=== PATIENT | female | born 1960 | race Caucasian/White ===

== ENCOUNTER 2020-02-26 09:18 | Outpatient (CLI) | payer OTHER, SELFPAY ==
[2020-02-26 10:08] LABS: Anion Gap 10.3 mmol/L (7-16); Blood Urea Nitrogen 15 mg/dL (7-17); Calcium 8.8 mg/dL (8.4-10.2); Carbon Dioxide 31 mmol/L (22-30); Chloride 99 mmol/L (98-107); Cholesterol 236 mg/dL (0-200); Estimated Glomerular Filt Rate > 60; Glucose 106 mg/dL (65-105); HDL Direct 49 mg/dL; Potassium 3.3 mmol/L (3.4-5.0); Sodium 137 mmol/L (137-145); Triglycerides 130 mg/dL (<150)
[2020-02-26 10:19] LABS: LDL Cholesterol Direct 145 mg/dL
[2020-02-26 11:17] LABS: Free T4 Free Thyroxine 0.58 ng/mL (0.78-2.19); Vitamin D 25 Hydroxy 46.2 ng/mL
== END 2020-02-26 09:19 | disposition home or self-care (01) ==
PROVIDERS: PCP Internal Medicine; Visit Provider Internal Medicine
DX: E55.9 Vitamin D deficiency, unspecified (principal); I10 Essential (primary) hypertension; E78.5 Hyperlipidemia, unspecified; E05.90 Thyrotoxicosis, unspecified without thyrotoxic crisis or storm
CPT/HCPCS: 36415; 80048; 80061; 82306; 84439; 84443

== ENCOUNTER 2020-05-14 11:43 | Outpatient (CLI) | payer OTHER, SELFPAY ==
[2020-05-14 14:05] LABS: Thyroid Stimulating Hormone 0.756 uIU/mL (0.465-4.680)
[2020-05-14 14:08] LABS: Free T4 Free Thyroxine 1.27 ng/mL (0.78-2.19)
== END 2020-05-14 11:44 | disposition home or self-care (01) ==
PROVIDERS: PCP Internal Medicine; Visit Provider Internal Medicine Endocrinology, Diabetes & Metabolism
DX: E03.9 Hypothyroidism, unspecified (principal)
CPT/HCPCS: 36415; 84439; 84443

== ENCOUNTER 2020-07-02 08:27 | Outpatient (CLI) | payer OTHER, SELFPAY ==
--- NOTE | ~2020-07-02 | DEXA_ITS ---
Bone Density Report Name: Wilma Scott Age: 60 Sex: Female Ethnicity: White Date of : 1960 Indication: postmenopausal; prior fracture; Referring Provider: KINGS, TED Study: Bone densitometry was performed. Exam Date: July 02, 2020 Accession number: [id number] Bone Density: Region BMD T-score Z-score Classification AP Spine (L1-L4) 0.923 -1.1 0.3 Osteopenia Femoral Neck (Left) 0.578 -2.4 -1.2 Osteopenia Total Hip (Left) 0.779 -1.3 -0.4 Osteopenia Total Hip Bilateral Avg 0.809 -1.1 -0.2 Osteopenia Femoral Neck (Right) 0.653 -1.8 -0.5 Osteopenia Total Hip (Right) 0.838 -0.9 0.1 Normal World Health Organization criteria for BMD impression classify patients as: Normal (T-score at or above -1.0), Osteopenia (T-score between -1.0 and -2.5), or Osteoporosis (T-score at or below -2.5). 10-year Fracture Risk: FRAX not reported because: Treated for osteoporosis Clinical Information Provided by Patient: Has had a low trauma fracture Is being treated for osteoporosis Has used the following medications: Reclast (i.e. zoledronate), Vitamin D Patient maximum height was 62.5 Menopause Age: 53 No regular weight bearing exercise Drinks caffeinated beverages Onset of menses at age 15 Number of children 3 Impression: The patient has low bone mass, based on the Left Femoral Neck T-score. The patient has risk factors, including: previous fracture. Discussion: It is important to ask patients whether they are taking their medications and to encourage continued and appropriate compliance with their osteoporosis therapies to reduce fracture risk. It is also important to review their risk factors and encourage appropriate calcium and vitamin D intakes, exercise, fall prevention and other lifestyle measures. Follow-Up: Consider a repeat BMD and Vertebral Fracture Assessment (VFA) exam in 2 years or sooner if medically necessary, to reassess this patient's status. Reported by: DO on 07/02/2020 9:18:00 AM. Reviewed, dictated and finalized at location AAdan MENDOSA
--- NOTE | ~2020-07-02 | MM_ITS ---
EXAMINATION: MM screening [facility] HISTORY: Screening mammogram TECHNIQUE: Craniocaudal and mediolateral oblique 3-D tomosynthesis images were obtained and synthetic 2-D images were generated. CAD analysis was submitted and interpreted. COMPARISON: 05/08/2019, 03/25/2018, 03/15/2017 BREAST PARENCHYMAL COMPOSITION: There are scattered areas of fibroglandular density. FINDINGS: There is no evidence of suspicious mass, calcification, or architectural distortion to sugg est malignancy in either breast. There has been no suspicious interval change. IMPRESSION: 1. No mammographic evidence of malignancy. 2. Recommend routine screening mammography in one year. BI-RADS Category 1: Negative Reviewed, dictated and finalized at location A. 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
== END 2020-07-02 08:28 | disposition home or self-care (01) ==
LOC: ANHIMG 08:30
PROVIDERS: PCP Internal Medicine; Visit Provider Nurse Practitioner
DX: Z12.31 Encounter for screening mammogram for malignant neoplasm of breast (principal); Z78.0 Asymptomatic menopausal state; M85.89 Other specified disorders of bone density and structure, multiple sites
CPT/HCPCS: 77063; 77067; 77080

== ENCOUNTER 2020-12-09 17:38 | Emergency (ER) | payer OTHER, SELFPAY ==
[2020-12-09 17:48] VITALS: BP 145/81; PULSE 84; RESP 16; TEMP 36.7; O2SAT 99
--- NOTE | 2020-12-09 18:20 | ED.SKABFB ---
HPI - Skin/Abscess/Foreign Bdy General Chief complaint: Skin/Abscess/Foreign Body Stated complaint: Swollen arm around tattoo Time Seen by Provider: 12/09/20 18:20 Source: patient Mode of arrival: ambulatory Limitations: no limitations History of Present Illness HPI narrative: Wilma Scott is a 60 yo female with a PMH of HTN who comes with redness and swelling around a brand-new tattoo that was done last Saturday on her right forearm. The area around the tattoo is red and raised is mildly warm to touch but also is pruritic. She has tried variety of moisturizing lotions on the arm and some hydrocortisone around the tattoo. Has had multiple tattoos in the past without a reaction Related Data Home Medications Medication Instructions Recorded Confirmed bimatoprost [Lumigan] drp 12/09/20 ergocalciferol (vitamin D2) 12/09/20 levothyroxine [Synthroid] 12/09/20 timolol maleate drp 12/09/20 Allergies Allergy/AdvReac Type Severity Reaction Status Date / Time codeine Allergy Unknown Unknown Verified 10/24/20 14:15 Penicillins Allergy Unknown Unknown Verified 10/24/20 14:15 Review of Systems Review of Systems: Narrative: CONSTITUTIONAL: Denies fever, chills, sweats. EYES: Denies visual changes, redness, discharge. ENT: Denies rhinorrhea, congestion, sore throat, otalgia. CARDIOVASCULAR: Denies chest pain, palpitations, edema. RESPIRATORY: Denies dyspnea, wheezing, cough GASTROINTESTINAL: Denies abdominal pain, nausea, vomiting, diarrhea. GENITOURINARY: Denies dysuria, hematuria, abnormal discharge SKIN: Denies rash or itching. Redness and induration around the new tattoo with itching NEUROLOGIC: Denies numbness, or focal weakness. PSYCHIATRIC: Denies anxiety or depression. [facility] Past Medical History Medical History HTN (hypertension) Family History Family History (Updated 12/09/20 @ 18:36 by Rosanna Smith CNP) Mother Family history of congestive heart failure Father Family history of cystic fibrosis Pulmonary fibrosis Other Pulmonary fibrosis Other Diabetes mellitus Family history of arthritis Family history of cardiovascular disease Family history of lung disease Family history of malignant neoplasm Family history of osteoporosis Hypertension Social History Social History Smoking packs per day: 0.5 Smoking cigarettes per day: 10.0 Years smoked: 14 Smoking pack-years: 7.00 Smoking status: Former smoker Tobacco type: cigarettes Smoking end date: 10/24/92 Alcohol intake: current Spiritual care concerns: No Comments At time of signature, I agree with nursing past medical, surgical, social and family history. There is no relevant family history pertinent to the presenting complaint. Exam Narrative: Exam Narrative: My GENERAL: This is a well-nourished, well-developed patient, in mild distress. HEAD: normocephalic, atraumatic. EYESSclera clear/white. Vision is grossly intact. EARS: External ears normal, Hearing grossly intact. NOSE: External nose normal without nasal discharge, nares without redness, no rhinorrhea. THROAT: Mucous membranes moist, NECK: Neck supple, CARDIOVASCULAR: Regular rate and rhythm without murmurs, gallops, or rubs. RESPIRATORY: Clear to auscultation. Breath sounds equal bilaterally. No wheezes, rales, or rhonchi. GASTROINTESTINAL: Abdomen soft, non-tender, SKIN: warm, intact with redness and induration around tattoo with some itching the tattoo itself is not edemic; reddened area is pruritic NEURO: awake, alert, and oriented to person, place and time. There were no obvious focal neurologic abnormalities. Steady gait EXTREMITIES: Normal range of motion. BACK: Nontender without deformity Course Course Emergency Course: Patient here because of reaction around tattoo that was placed last Saturday Started on hydrocortisone 1% cream around tattoo and Keflex 500 mg 3 times daily x1
--- NOTE | 2020-12-09 19:34 | PC.NURSE ---
called and requested rx to go to [facility] on [address]. [employer] in process of re escribing.
== END 2020-12-09 18:52 | disposition home or self-care (01) ==
PROVIDERS: Emergency Provider Nurse Practitioner; PCP Internal Medicine
DX: L50.9 Urticaria, unspecified (principal); L03.113 Cellulitis of right upper limb; Z87.891 Personal history of nicotine dependence; I10 Essential (primary) hypertension
CPT/HCPCS: 99213; G0463

== ENCOUNTER → 2021-08-08 06:59 | Outpatient (CLI) | payer OTHER, SELFPAY ==
--- NOTE | ~2021-08-08 | MM_ITS ---
EXAMINATION: MM screening [facility] HISTORY: Screening TECHNIQUE: Craniocaudal and mediolateral oblique 3-D tomosynthesis images were obtained and synthetic 2-D images were generated. CAD analysis was submitted and interpreted. COMPARISON: Comparison to multiple prior studies sequentially, with oldest reviewed study dated 03/05. BREAST PARENCHYMAL COMPOSITION: There are scattered areas of fibroglandular density. FINDINGS: There is no evidence of suspicious mass, calcification, or architectural distortion to sugg est malignancy in either breast. There has been no suspicious interval change. IMPRESSION: 1. No mammographic evidence of malignancy. 2. Recommend routine screening mammography in one year. BI-RADS Category 1: Negative Reviewed, dictated and finalized at location A. NCIAL OPERATIONS CONSULTANT
== END ==
PROVIDERS: Visit Provider Nurse Practitioner
DX: Z12.31 Encounter for screening mammogram for malignant neoplasm of breast (principal)
CPT/HCPCS: 77063; 77067

== ENCOUNTER → 2021-08-17 09:54 | Outpatient (CLI) | payer OTHER, SELFPAY ==
[2021-08-17 14:28] LABS: Influenza A QL RT-PCR Negative (Negative); Influenza B QL RT-PCR Negative (Negative); SARS-CoV-2 RNA PCR Positive
== END ==
PROVIDERS: PCP Internal Medicine; Visit Provider Nurse Practitioner
DX: U07.1 COVID-19 (principal); R68.89 Other general symptoms and signs
CPT/HCPCS: 87502; C9803; U0003; U0005

== ENCOUNTER 2021-11-14 09:43 | Outpatient (CLI) | payer OTHER, SELFPAY ==
--- NOTE | ~2021-11-14 | US_ITS ---
EXAMINATION: US soft tissue head and neck DATE: 11/14/2021 10:31 INDICATION: Posterior neck lump. TECHNIQUE: Multiple grayscale and Doppler ultrasound images of the neck were obtained. COMPARISON: None FINDINGS: There is a 1.4 cm mass in the posterior neck at the base of the skull. IMPRESSION: 1. 1.4 cm mass in the posterior neck in the base of the skull. This finding may be the nuchal ligamen t with enthesopathy. Neck CT with contrast is recommended to exclude malignancy. Reviewed, dictated and finalized at location A. IMPRESSION: 1. 1.4 cm mass in the posterior neck in the base of the skull. This finding may be the nuchal ligament with enthesopathy. Neck CT with contrast is recommended to exclude malignancy.
== END 2021-11-14 09:44 | disposition home or self-care (01) ==
PROVIDERS: PCP Internal Medicine; Visit Provider Internal Medicine
DX: R22.1 Localized swelling, mass and lump, neck (principal)
CPT/HCPCS: 76536

== ENCOUNTER → 2021-11-17 01:35 | Outpatient (CLI) | payer OTHER, SELFPAY ==
[2021-11-17 12:40] LABS: SARS-CoV-2 RNA PCR Negative
== END ==
PROVIDERS: PCP Internal Medicine; Visit Provider Internal Medicine Gastroenterology
DX: Z01.812 Encounter for preprocedural laboratory examination (principal); Z20.822 Contact with and (suspected) exposure to COVID-19
CPT/HCPCS: C9803; U0003; U0005

== ENCOUNTER 2021-11-20 02:15 | Day surgery (SDC) | payer OTHER, SELFPAY ==
[2021-11-13 14:25] VITALS: BMI 23.6
[2021-11-20 09:30] VITALS: BP 123/87; PULSE 81; RESP 16; TEMP 36.2; O2SAT 100
[2021-11-20] MEDS: LACTATED RINGERS 1,000 ML 150 ML IV CONT (09:34)
--- NOTE | 2021-11-20 09:49 | PM.HPGS ---
History of Present Illness History of Present Illness Consent: Risks, benefits, and alternatives have been discussed and questions answered. Patient agrees to proceed with procedure. Chief complaint: neoplasm screening Narrative: Wilma Scott is a 61 year old female referred for colon cancer screening. It has been 10 years since her last colonoscopy. Review of Systems Review of Systems: All systems reviewed & are unremarkable except as noted in HPI and below PMFSH Past Medical History Medical History Gastro-esophageal reflux disease without esophagitis (04/21/19) Generalized anxiety disorder History of [place] (myocardial infarction) 1992 HTN (hypertension) Hyperlipidemia Hypothyroidism Surgical History Surgical History History of cholecystectomy History of rotator cuff surgery Family History Family History Mother Family history of congestive heart failure Father Family history of cystic fibrosis Pulmonary fibrosis Other Pulmonary fibrosis Other Diabetes mellitus Family history of arthritis Family history of cardiovascular disease Family history of lung disease Family history of malignant neoplasm Family history of osteoporosis Hypertension Social History Social History Smoking packs per day: 0.25 Smoking cigarettes per day: 5.0 Years smoked: 19 Smoking pack-years: 4.75 Smoking status: Former smoker Tobacco type: cigarettes Second hand tobacco smoke exposure: Yes Smoking end date: 10/24/92 Alcohol intake: never Alcohol use details: Social Substance use: never Substance use type: does not use Living arrangements: with family Spiritual care concerns: No Meds Home Medications and Allergies Home Medications Medication Instructions Recorded Confirmed Type bimatoprost [Lumigan] 1 drp EACH EYE DAILY 12/09/20 11/20/21 History timolol maleate 1 drp EACH EYE DAILY 12/09/20 11/20/21 History ergocalciferol (vitamin D2) 1,250 1 mcg PO WEEKLY 02/28/21 11/20/21 History mcg (50,000 unit) capsule spironolactone 25 1 tablet PO DAILY #90 tablet 06/21/21 11/20/21 Rx mg-hydrochlorothiazide 25 mg tablet pravastatin 40 mg tablet 40 mg PO DAILY #90 tablet 07/03/21 11/20/21 Rx levothyroxine 75 mcg capsule 75 mcg PO DAILY 11/03/21 11/20/21 History lorazepam 0.5 mg tablet 0.5 mg PO DAILY PRN #30 tablet 11/03/21 11/20/21 Rx cetirizine [Zyrtec] 10 mg PO DAILY 11/13/21 11/20/21 History Allergies Allergy/AdvReac Type Severity Reaction Status Date / Time codeine Allergy Unknown Unknown Verified 11/20/21 09:29 Penicillins Allergy Unknown Unknown Verified 11/20/21 09:29 Vital Signs Vital Signs - 24 hr 11/20/21 09:30 Temperature 36.2 C L Pulse Rate 81 Respiratory Rate 16 Blood Pressure 123/87 Pulse Oximetry 100 Exam Resp: Auscultation: clear to auscultation bilaterally Cardio: Rate: regular rate Rhythm: regular rhythm GI: GI Palp: Yes Soft to palpation and No Tenderness to palpation present (GI) Assessment and Plan Assessment and plan (1) Colon cancer screening: Code(s): Z12.11 - Encounter for screening for malignant neoplasm of colon Status: Acute Assessment and Plan: Colonoscopy with possible biopsy or polypectomy or cautery or injection of substances.
--- NOTE | 2021-11-20 10:15 | WPDANESEPPF ---
Anes - Initial Pre Proc Eval Procedure: Operation Date: 11/20/21 10:30 Proposed Procedures p Screening Colonoscopy - Yuan Morgan MD Date/Time: 11/20/21 10:15 Surgeon: Yuan Morgan MD Pre Op Diagnosis: neoplasm screening Patient Data Age: 61 Gender: F Height: 1.59 m Weight: 59.3 kg Last Vital Signs Temp 97.1 F L 11/20/21 09:30 Pulse 81 11/20/21 09:30 Resp 16 11/20/21 09:30 BP 123/87 11/20/21 09:30 Pulse Ox 100 11/20/21 09:30 Allergies Allergy/AdvReac Type Severity Reaction Status Date / Time codeine Allergy Unknown Unknown Verified 11/20/21 09:29 Penicillins Allergy Unknown Unknown Verified 11/20/21 09:29 Home Medications Medication Instructions Recorded Confirmed Type bimatoprost [Lumigan] 1 drp EACH EYE DAILY 12/09/20 11/20/21 History timolol maleate 1 drp EACH EYE DAILY 12/09/20 11/20/21 History ergocalciferol (vitamin D2) 1,250 1 mcg PO WEEKLY 02/28/21 11/20/21 History mcg (50,000 unit) capsule spironolactone 25 1 tablet PO DAILY #90 tablet 06/21/21 11/20/21 Rx mg-hydrochlorothiazide 25 mg tablet pravastatin 40 mg tablet 40 mg PO DAILY #90 tablet 07/03/21 11/20/21 Rx levothyroxine 75 mcg capsule 75 mcg PO DAILY 11/03/21 11/20/21 History lorazepam 0.5 mg tablet 0.5 mg PO DAILY PRN #30 tablet 11/03/21 11/20/21 Rx cetirizine [Zyrtec] 10 mg PO DAILY 11/13/21 11/20/21 History Patient hx anesthesia problems: none Family hx anesthesia problems: none Results Review: All pre-operative results and documents have been reviewed as part of the pre-operative evaluation. [facility] Past Medical History Medical History (Updated 11/20/21 @ 09:49 by Yuan Morgan MD) Gastro-esophageal reflux disease without esophagitis (04/21/19) Generalized anxiety disorder History of [place] (myocardial infarction) 1993 HTN (hypertension) Hyperlipidemia Hypothyroidism Surgical History Surgical History History of cholecystectomy History of rotator cuff surgery Family History Family History Mother Family history of congestive heart failure Father Family history of cystic fibrosis Pulmonary fibrosis Other Pulmonary fibrosis Other Diabetes mellitus Family history of arthritis Family history of cardiovascular disease Family history of lung disease Family history of malignant neoplasm Family history of osteoporosis Hypertension Social History Social History Smoking packs per day: 0.25 Smoking cigarettes per day: 5.0 Years smoked: 19 Smoking pack-years: 4.75 Smoking status: Former smoker Tobacco type: cigarettes Second hand tobacco smoke exposure: Yes Smoking end date: 10/24/92 Alcohol intake: never Alcohol use details: Social Substance use: never Substance use type: does not use Living arrangements: with family Spiritual care concerns: No Anes - Eval Final PreProcedure Day of Procedure 11/20/21 10:15 Patient weight: normal Heart: regular rate and rhythm Lungs: clear to auscultation Airway: Mallampati scale class II Neurological: alert and oriented Last oral intake: >/= 8 hours ASA classification: III Emergent: no Anesthetic plan: proceed Anesthesia type and monitoring: general GIVS and standard monitoring Results Review: All pre-operative results and documents have been reviewed as part of the pre-operative evaluation. Informed Consent: The patient's anesthetic plan and its attendant risks and benefits were discussed with the patient/family/POA. Questions were solicited and answers provided to the satisfaction of the patient/family/POA.
[2021-11-20 10:44] VITALS: BP 104/70; PULSE 84; RESP 18; O2SAT 99
[2021-11-20 10:54] VITALS: BP 109/71; PULSE 80; RESP 20; O2SAT 99
[2021-11-20 11:04] VITALS: BP 130/88; PULSE 84; RESP 18; O2SAT 99
== END 2021-11-20 11:11 | disposition home or self-care (01) ==
PROVIDERS: PCP Internal Medicine; Visit Provider Internal Medicine Gastroenterology
PROC: 0DJD8ZZ Inspection of Lower Intestinal Tract, Via Natural or Artificial Opening Endoscopic (ICD-10-PCS; CPT 45378; principal; 2021-11-20 10:30)
DX: Z12.11 Encounter for screening for malignant neoplasm of colon (principal); D12.8 Benign neoplasm of rectum; K57.30 Diverticulosis of large intestine without perforation or abscess without bleeding; E03.9 Hypothyroidism, unspecified; I25.2 Old myocardial infarction; E78.5 Hyperlipidemia, unspecified; Z87.891 Personal history of nicotine dependence; K21.9 Gastro-esophageal reflux disease without esophagitis; F41.1 Generalized anxiety disorder
CPT/HCPCS: 45385; 88305; C9803; J2704; J7120; U0003; U0005

== ENCOUNTER 2021-11-30 06:59 | Outpatient (CLI) | payer OTHER, SELFPAY ==
--- NOTE | ~2021-11-30 | CT_ITS ---
EXAMINATION: CT soft tissue neck w con DATE: 11/30/2021 07:49 INDICATION: Posterior neck mass. TECHNIQUE: Computed tomography (CT) of the neck was performed with 75 mL Omnipaque 300 intravenous co ntrast. Automated exposure control and iterative reconstruction technique were employed. The dose-lula gth product was 396.04 mGy-cm. COMPARISON: Ultrasound 11/14/2021 FINDINGS: There are no pathologically enlarged lymph nodes. The cervical carotid arteries are normal. There is mild kyphosis of cervical spine. There is moderate degenerative disc disease at C5-C6 and m ild spondylosis at other levels. There is a skin marker at the posterior neck at the midline at C3. T here is thickening of the nuchal ligament with surrounding fat stranding in this area. IMPRESSION: 1. Thickening of the nuchal ligament at C3 with surrounding fat stranding, likely changes of old spra in. Reviewed, dictated and finalized at location A. IMPRESSION: 1. Thickening of the nuchal ligament at C3 with surrounding fat stranding, like ly changes of old sprain.
[2021-11-30 07:36] LABS: Estimated Glomerular Filt Rate > 60
== END 2021-11-30 07:00 | disposition home or self-care (01) ==
PROVIDERS: PCP Internal Medicine; Visit Provider Internal Medicine
DX: R22.1 Localized swelling, mass and lump, neck (principal)
CPT/HCPCS: 70491; Q9967

== ENCOUNTER 2022-08-13 15:09 | Outpatient (CLI) | payer OTHER, SELFPAY ==
--- NOTE | ~2022-08-13 | DEXA_ITS ---
Bone Density Report Name: KANDY RAO Age: 62 Sex: Female Ethnicity: White Date of : 1960 Indication: postmenopausal; screening for osteoporosis; Referring Provider: KINGS, TED Study: Bone densitometry was performed. Exam Date: August 13, 2022 Accession number: [id number] Bone Density: Region BMD T-score Z-score Classification AP Spine(L1-L4) 0.926 -1.1 0.5 Osteopenia Femoral Neck (Left) 0.620 -2.1 -0.7 Osteopenia Total Hip (Left) 0.799 -1.2 -0.1 Osteopenia Femoral Neck (Right) 0.698 -1.4 0.0 Osteopenia Total Hip (Right) 0.861 -0.7 0.4 Normal Total Hip Mean 0.830 -1.0 0.2 Normal World Health Organization criteria for BMD impression classify patients as: Normal (T-score at or above -1.0), Osteopenia (T-score between -1.0 and -2.5), or Osteoporosis (T-score at or below -2.5). 10-year Fracture Risk: FRAX not reported because: Treated for osteoporosis Clinical Information Provided by Patient: Is being treated for osteoporosis Has used the following medications: Reclast (i.e. zoledronate), Vitamin D Patient maximum height was 62.5 Menopause Age: 53 No regular weight bearing exercise Drinks caffeinated beverages Onset of menses at age 16 Number of children 3 Impression: The patient has low bone mass, based on the Left Femoral Neck T-score. Discussion: It is important to ask patients whether they are taking their medications and to encourage continued and appropriate compliance with their osteoporosis therapies to reduce fracture risk. It is also important to review their risk factors and encourage appropriate calcium and vitamin D intakes, exercise, fall prevention and other lifestyle measures. Follow-Up: Consider a repeat BMD and Vertebral Fracture Assessment (VFA) exam in 2 years or sooner if medically necessary, to reassess this patient's status. Reported by: KOBY on 08/13/2022 3:55:00 PM. Reviewed, dictated and finalized at location AAdan MENDOSA
--- NOTE | ~2022-08-13 | MM_ITS ---
EXAMINATION: MM screening [facility] HISTORY: Screening mammogram TECHNIQUE: Craniocaudal and mediolateral oblique 3-D tomosynthesis images were obtained and synthetic 2-D images were generated. CAD analysis was submitted and interpreted. COMPARISON: 08/08/2021, 07/02/2020, 05/08/2019 bilateral screening mammogram examinations BREAST PARENCHYMAL COMPOSITION: There are scattered areas of fibroglandular density. FINDINGS: There is no evidence of suspicious mass, calcification, or architectural distortion to sugg est malignancy in either breast. There has been no suspicious interval change. IMPRESSION: 1. No mammographic evidence of malignancy. 2. Recommend routine screening mammography in one year. BI-RADS Category 1: Negative Reviewed, dictated and finalized at location A. TRIMMER
== END 2022-08-13 15:10 | disposition home or self-care (01) ==
LOC: ANHIMG 15:16
PROVIDERS: PCP Internal Medicine; Visit Provider Nurse Practitioner
DX: Z12.31 Encounter for screening mammogram for malignant neoplasm of breast (principal); M85.88 Other specified disorders of bone density and structure, other site; M85.852 Other specified disorders of bone density and structure, left thigh; M85.851 Other specified disorders of bone density and structure, right thigh
CPT/HCPCS: 77063; 77067; 77080

== ENCOUNTER 2023-03-24 19:31 | Emergency (ER) | payer OTHER, SELFPAY ==
[2023-03-24 20:02] VITALS: BP 146/92; PULSE 74; RESP 20; TEMP 36.4; O2SAT 100
--- NOTE | 2023-03-24 23:05 | ED.GENADULT ---
HPI - General Adult General Chief complaint: Eye Problems Stated complaint: Floaters in L eye Time Seen by Provider: 03/24/23 22:34 History of Present Illness HPI narrative: This is a 62-year-old female presenting with floaters in her left eye. Last night the patient was at a barbecue when she notes she had some black specks in her vision. She then read on the Internet this could be retinal detachment on the internet and came to the hospital be evaluated. The patient does not have any visual field loss. No eye pain. No foreign bodies in the eye. No trauma She has glaucoma and has a hoop coiler. Related Data Home Medications Medication Instructions Recorded Confirmed bimatoprost 0.01 % eye drops 1 drp EACH EYE DAILY 12/09/20 03/21/23 (Lumigan) timolol maleate 0.5 % eye drops 1 drp EACH EYE DAILY 12/09/20 03/21/23 levothyroxine 75 mcg capsule 75 mcg PO DAILY 11/03/21 03/21/23 cetirizine 10 mg capsule (Zyrtec) 10 mg PO DAILY 11/13/21 03/21/23 ergocalciferol (vitamin D2) 1,250 1 mcg PO 2XW 09/06/22 03/21/23 mcg (50,000 unit) capsule Allergies Allergy/AdvReac Type Severity Reaction Status Date / Time codeine Allergy Unknown Unknown Verified 03/24/23 19:32 Penicillins Allergy Unknown Unknown Verified 03/24/23 19:32 [facility] Past Medical History Medical History Calculus of gallbladder without cholecystitis without obstruction Disorder of bone density and structure, unspecified Gastro-esophageal reflux disease without esophagitis (04/21/19) Generalized anxiety disorder History of [place] (myocardial infarction) 1992 HTN (hypertension) Hyperglycemia Hyperlipidemia Hyperthyroidism Hypothyroidism Impaired fasting glucose Osteopenia Vitamin D deficiency (04/21/19) Surgical History Surgical History History of cholecystectomy History of rotator cuff surgery Family History Family History Mother Family history of congestive heart failure Father Family history of cystic fibrosis Pulmonary fibrosis Other Pulmonary fibrosis Other Diabetes mellitus Family history of arthritis Family history of cardiovascular disease Family history of lung disease Family history of malignant neoplasm Family history of osteoporosis Hypertension Social History Social History Smoking packs per day: 0.25 Smoking cigarettes per day: 5.0 Years smoked: 19 Smoking pack-years: 4.75 Smoking status: Former smoker Tobacco type: cigarettes Second hand tobacco smoke exposure: Yes Smoking end date: 10/24/92 Alcohol intake: current Alcohol use details: Social Substance use: never Substance use type: does not use Lack of Transportation: No Lack of Food: Never True Current Housing: I Have Housing Concerned About Future Housing: No Difficulty Paying Gas/Electric Bills: No Difficulty Paying for Meds: No Currently Unemployed: No Education: Bachelor's Degree Difficulty w/ Childcare or Family Care: No Living arrangements: with family Spiritual care concerns: No Exam Narrative: APPEARANCE: No apparent distress. Head: atraumatic. EYES: EOMI, NOSE: Atraumatic NECK: Trachea midline RESPIRATORY: No increased rate of breathing CARDIOVASCULAR: RRR, ABDOMINAL: Non-distended MUSCULOSKELETAl: No obvious deformities NEURO: Alert. Moving 4/4 extremities SKIN:: Warm, dry. Normal color PSYCHIATRIC: Normal affect Eye exam: Fluorescein stain negative for abrasion or Tala sign. IOP is 16 bilaterally. 20/70 bilaterally. Visual felipe intact. Point of care ocular ultrasound revealed no evidence of retinal detachment or detritus in the posterior chamber. Course Vital Signs Vital signs: Vital Signs Temperature 97.6 F 03/24/23 20:02 Pulse Rate 74
[2023-03-24] MEDS: FLUORESCEIN SOD 1 MG/STRIP EACH EYE (23:10)
[2023-03-24] MEDS: TETRACAINE HCL 0.5% OPHTH SOLN 4 ML BTL 1 DROP EACH EYE (23:11)
[2023-03-24 23:23] VITALS: BP 142/86; PULSE 74; RESP 19; O2SAT 97
== END 2023-03-24 23:25 | disposition home or self-care (01) ==
PROVIDERS: Emergency Provider Emergency Medicine; PCP Nurse Practitioner Family
DX: H43.812 Vitreous degeneration, left eye (principal); I10 Essential (primary) hypertension; E78.5 Hyperlipidemia, unspecified; E55.9 Vitamin D deficiency, unspecified; K21.9 Gastro-esophageal reflux disease without esophagitis; M85.80 Other specified disorders of bone density and structure, unspecified site; Z90.49 Acquired absence of other specified parts of digestive tract; Z87.891 Personal history of nicotine dependence
CPT/HCPCS: 99283

== ENCOUNTER 2023-09-11 15:20 | Outpatient (CLI) | payer OTHER, SELFPAY ==
--- NOTE | ~2023-09-11 | MM_ITS ---
EXAMINATION: MM screening [facility] w li[facility] HISTORY: Screening TECHNIQUE: Craniocaudal and mediolateral oblique 3-D tomosynthesis images were obtained and synthetic 2-D images were generated. CAD analysis was submitted and interpreted. COMPARISON: Comparison to multiple prior studies sequentially, with oldest reviewed study dated 03/15. BREAST PARENCHYMAL COMPOSITION: Not dense: There are scattered areas of fibroglandular density. FINDINGS: There is no evidence of suspicious mass, calcification, or architectural distortion to sugg est malignancy in either breast. There has been no suspicious interval change. IMPRESSION: 1. No mammographic evidence of malignancy. 2. Recommend routine screening mammography in one year. BI-RADS Category 1: Negative Reviewed, dictated and finalized at location A. 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
[2023-09-11 18:21] LABS: Vitamin D 25 Hydroxy 61.6 ng/mL
== END 2023-09-11 15:21 | disposition home or self-care (01) ==
LOC: ANHIMG 15:26
PROVIDERS: PCP Nurse Practitioner Family; Visit Provider Nurse Practitioner
DX: Z12.31 Encounter for screening mammogram for malignant neoplasm of breast (principal); E55.9 Vitamin D deficiency, unspecified
CPT/HCPCS: 36415; 77063; 77067; 82306

== ENCOUNTER 2024-01-14 08:10 | Emergency (ER) | payer OTHER, SELFPAY ==
--- NOTE | 2024-01-14 08:12 | ED.SKABFB ---
HPI - Skin/Abscess/Foreign Bdy General Chief complaint: Skin/Abscess/Foreign Body Stated complaint: spider bite Time Seen by Provider: 01/14/24 08:11 Source: patient Mode of arrival: ambulatory Limitations: no limitations History of Present Illness HPI narrative: Wilma is a 63-year-old female patient presenting to the clinic today with complaints of a possible insect bite. She reports she believes she was bitten by a spider early this morning while she was sleeping. She reports she checked her bed for the spider and found a brown spider underneath her bed. She is concerned that it was a brown recluse. Did bring the spider with her-spider appears to be a brown house spider. No fever or chills. Related Data Home Medications Medication Instructions Recorded Confirmed bimatoprost 0.01 % eye drops 1 drp EACH EYE DAILY 12/09/20 01/14/24 (Lumigan) timolol maleate 0.5 % eye drops 1 drp EACH EYE DAILY 12/09/20 01/14/24 levothyroxine 75 mcg capsule 75 mcg PO DAILY 11/03/21 01/14/24 cetirizine 10 mg capsule (Zyrtec) 10 mg PO DAILY 11/13/21 01/14/24 ergocalciferol (vitamin D2) 1,250 1 mcg PO 2XW 09/06/22 01/14/24 mcg (50,000 unit) capsule Allergies Allergy/AdvReac Type Severity Reaction Status Date / Time codeine Allergy Intermediate Hives Verified 01/14/24 08:24 Penicillins Allergy Intermediate Rash Verified 01/14/24 08:24 Review of Systems Review of Systems: Pertinent positives per HPI. Patient denies any fever, chills, headache, visual changes, dizziness, cough, runny nose, sore throat, shortness of breath, chest pain, palpitations, nausea, vomiting, diarrhea, constipation, abdominal pain, or any urinary issues. [facility] Past Medical History Medical History Calculus of gallbladder without cholecystitis without obstruction Disorder of bone density and structure, unspecified Gastro-esophageal reflux disease without esophagitis (04/21/19) Generalized anxiety disorder History of [place] (myocardial infarction) 1992 HTN (hypertension) Hyperglycemia Hyperlipidemia Hyperthyroidism Hypothyroidism Impaired fasting glucose Osteopenia Vitamin D deficiency (04/21/19) Surgical History Surgical History History of cholecystectomy History of rotator cuff surgery Family History Family History Mother Family history of congestive heart failure Father Family history of cystic fibrosis Pulmonary fibrosis Other Pulmonary fibrosis Other Diabetes mellitus Family history of arthritis Family history of cardiovascular disease Family history of lung disease Family history of malignant neoplasm Family history of osteoporosis Hypertension Social History Social History Smoking packs per day: 0.25 Smoking cigarettes per day: 5.0 Years smoked: 19 Smoking pack-years: 4.75 Smoking status: Former smoker Tobacco type: cigarettes Second hand tobacco smoke exposure: Yes Smoking end date: 10/24/92 Alcohol intake: current Alcohol use details: Social Substance use: never Substance use type: does not use Lack of Transportation: No Lack of Food: Never True Current Housing: I Have Housing Concerned About Future Housing: No Difficulty Paying Gas/Electric Bills: No Difficulty Paying for Meds: No Currently Unemployed: No Education: Bachelor's Degree Difficulty w/ Childcare or Family Care: No Living arrangements: with family Spiritual care concerns: No Comments At the time of my signature, I reviewed and agree with the nursing past medical, surgical, social, and family history. There is no relevant family history pertinent to the patient complaint. Exam Narrative: General: Well-developed, well nourished, in no apparent distress Head: Normocephali
[2024-01-14 08:20] VITALS: BP 139/90; PULSE 73; RESP 16; TEMP 37.2; O2SAT 99
[2024-01-14 08:26] VITALS: BP 139/90; PULSE 73; RESP 16; TEMP 37.2; O2SAT 99
== END 2024-01-14 08:32 | disposition home or self-care (01) ==
PROVIDERS: Emergency Provider Nurse Practitioner Family; PCP Nurse Practitioner Family
DX: S00.86XA Insect bite (nonvenomous) of other part of head, initial encounter (principal); W57.XXXA Bitten or stung by nonvenomous insect and other nonvenomous arthropods, initial encounter; Z87.891 Personal history of nicotine dependence; K21.9 Gastro-esophageal reflux disease without esophagitis; I25.2 Old myocardial infarction; I10 Essential (primary) hypertension; E78.5 Hyperlipidemia, unspecified; E05.90 Thyrotoxicosis, unspecified without thyrotoxic crisis or storm; E03.9 Hypothyroidism, unspecified; M85.80 Other specified disorders of bone density and structure, unspecified site; E55.9 Vitamin D deficiency, unspecified
CPT/HCPCS: 99213; G0463

== ENCOUNTER 2024-01-14 18:09 | Emergency (ER) | payer OTHER, SELFPAY ==
[2024-01-14 18:38] VITALS: BP 146/86; PULSE 85; RESP 17; TEMP 36.4; O2SAT 100
[2024-01-14] MEDS: FAMOTIDINE 20 MG/2 ML VIAL IV PUSH (20:26)
[2024-01-14] MEDS: diphenhydrAMINE HCl INJ 50 MG/ML VIAL 25 MG IV PUSH (20:26)
[2024-01-14] MEDS: DOXYCYCLINE HYCLATE 100 MG TABLET PO (20:26)
[2024-01-14] MEDS: methylPREDNISolone SOD SUCC 125 MG VIAL IV PUSH (20:26)
[2024-01-14 20:51] VITALS: BP 157/82; PULSE 73; RESP 16; O2SAT 99
--- NOTE | 2024-01-14 20:54 | ED.ALLEREA ---
HPI - Allergic Reaction General Chief complaint: Allergic Reaction <VANCE Bell Last Filed: 01/15/24 02:34> Stated complaint: possible spider bite <VANCE Bell Last Filed: 01/15/24 02:34> Time Seen by Provider: 01/14/24 19:13 <VANCE Bell Last Filed: 01/15/24 02:34> Source: patient <VANCE Bell Last Filed: 01/15/24 02:34> Mode of arrival: ambulatory <VANCE Bell Filed: 01/15/24 02:34> Limitations: no limitations <VANCE Bell Filed: 01/15/24 02:34> History of Present Illness HPI narrative: Patient is a 63-year-old female who presents the ED with report of facial swelling. Patient reports she was woken up from her sleep around 3:00 a.m. this morning feeling as though something had bitten her between her eyebrows. She noticed a red spot between the eyebrows. She checked underneath near her pillow and saw a brown spider. She is unsure if it was a brown recluse. She went to an urgent care and was prescribed a topical steroid and advised to take Benadryl. Throughout the day, patient developed increased swelling and mild discomfort throughout her forehead, periorbital regions, bridge of her nose. She denies vision changes, but notes that the swelling of her eyelids is making it difficult to see at times. Denies significant eye pain. Denies vision loss. She has been taking benadryl today w/o relief. Denies rash or itching elsewhere. Denies fevers. Denies numbness. Denies difficulty breathing or swallowing. <VANCE Bell Last Filed: 01/15/24 02:34> Related Data Home medications: Home Medications Medication Instructions Recorded Confirmed bimatoprost 0.01 % eye drops 1 drp EACH EYE DAILY 12/09/20 01/14/24 (Brad) timolol maleate 0.5 % eye drops 1 drp EACH EYE DAILY 12/09/20 01/14/24 levothyroxine 75 mcg capsule 75 mcg PO DAILY 11/03/21 01/14/24 cetirizine 10 mg capsule (Zyrtec) 10 mg PO DAILY 11/13/21 01/14/24 ergocalciferol (vitamin D2) 1,250 1 mcg PO 2XW 09/06/22 01/14/24 mcg (50,000 unit) capsule <Jenna Serrato PA-C - Last Filed: 01/15/24 02:34> Allergies/adverse reactions: Allergies Allergy/AdvReac Type Severity Reaction Status Date / Time codeine Allergy Intermediate Hives Verified 01/14/24 08:24 Penicillins Allergy Intermediate Rash Verified 01/14/24 08:24 <Jenna Serrato PA-C - Last Filed: 01/15/24 02:34> Review of Systems Review of Systems: CONSTITUTIONAL: Denies fever, chills, or sweats. ENT: See HPI. CARDIOVASCULAR: Denies chest pain. RESPIRATORY: Denies dyspnea. GASTROINTESTINAL: Denies abdominal pain, nausea, vomiting SKIN: See HPI NEUROLOGIC: Denies headache, dizziness, numbness, or weakness. <Jenna Serrato PA-C - Last Filed: 01/15/24 02:34> All systems reviewed & are unremarkable except as noted in HPI and below <Jenna Serrato PA-C - Last Filed: 01/15/24 02:34> [facility] Past Medical History Medical History: Medical History Calculus of gallbladder without cholecystitis without obstruction Disorder of bone density and structure, unspecified Gastro-esophageal reflux disease without esophagitis (04/21/19) Generalized anxiety disorder History of [place] (myocardial infarction) 1992 HTN (hypertension) Hyperglycemia Hyperlipidemia Hyperthyroidism Hypothyroidism Impaired fasting glucose Osteopenia Vitamin D deficiency (04/21/19) <Jnena Serrato PA-C - Last Filed: 01/15/24 02:34> Surgical History Surgical History: Surgical History History of cholecystectomy History of rotator cuff surgery <Jenna Serrato PA-C - Last Filed: 01/15/24 02:34> Family History Family History: Family History (Reviewed 01/15/24 @ 02:29 by Jenna Robert
[2024-01-14 21:03] VITALS: O2SAT 100
[2024-01-14] MEDS: ACETAMINOPHEN 500 MG TABLET 1000 MG PO (21:56)
[2024-01-14 22:04] VITALS: BP 126/87; PULSE 73; RESP 15; O2SAT 100
== END 2024-01-14 22:53 | disposition home or self-care (01) ==
PROVIDERS: Emergency Provider Physician Assistant; PCP Nurse Practitioner Family
DX: T63.301A Toxic effect of unspecified spider venom, accidental (unintentional), initial encounter (principal); R22.0 Localized swelling, mass and lump, head; I10 Essential (primary) hypertension; E78.5 Hyperlipidemia, unspecified; E03.9 Hypothyroidism, unspecified; I25.2 Old myocardial infarction; Z87.891 Personal history of nicotine dependence
CPT/HCPCS: 96374; 96375; 99284; A9270; J1200; J2919

== ENCOUNTER 2024-09-26 07:49 | Outpatient (CLI) | payer OTHER, SELFPAY ==
--- NOTE | ~2024-09-26 | DEXA_ITS ---
Bone Density Report Name: KANDY RAO Age: 64 Sex: Female Ethnicity: White Date of : 1960 Indication: osteopenia; monitoring treatment; Referring Provider: KINGS, TED Study: Bone densitometry was performed. Exam Date: September 26, 2024 Accession number: [id number] Bone Density: Region BMD T-score Z-score Classification AP Spine(L1-L4) 0.935 -1.0 0.7 Normal Femoral Neck (Left) 0.675 -1.6 -0.1 Osteopenia Total Hip (Left) 0.829 -0.9 0.3 Normal Femoral Neck (Right) 0.691 -1.4 0.0 Osteopenia Total Hip (Right) 0.864 -0.6 0.5 Normal Total Hip Mean 0.846 -0.8 0.4 Normal World Health Organization criteria for BMD impression classify patients as: Normal (T-score at or above -1.0), Osteopenia (T-score between -1.0 and -2.5), or Osteoporosis (T-score at or below -2.5). 10-year Fracture Risk: FRAX not reported because: Treated for osteoporosis Previous Exams: Region Exam Age BMD T-score BMD Change BMD Change Date g/cm2 vs Baseline vs Previous AP Spine (L1-L4) 09/26/2024 64 0.935 -1.0 0.012 (1.3%)# 0.009 (1.0%)# 08/13/2022 62 0.926 -1.1 0.003 (0.3%) 0.003 (0.3%) 07/02/2020 60 0.923 -1.1 Total Hip(Left) 09/26/2024 64 0.829 -0.9 0.050 (6.4%)# 0.030 (3.7%)# 08/13/2022 62 0.799 -1.2 0.020 (2.5%) 0.020 (2.5%) 07/02/2020 60 0.779 -1.3 Total Hip(Right) 09/26/2024 64 0.864 -0.6 0.026 (3.2%)# 0.003 (0.4%)# 08/13/2022 62 0.861 -0.7 0.023 (2.8%) 0.023 (2.8%) 07/02/2020 60 0.838 -0.9 *Denotes significance at 95% confidence level, LSC for AP Spine = 0.022 g/cm2, LSC for Total Hip = 0.027 g/cm2 # Denotes dissimilar scan types or analysis methods Clinical Information Provided by Patient: Is being treated for osteoporosis Has used the following medications: Reclast (i.e. zoledronate), Vitamin D, Calcium Patient maximum height was 62.5 Menopause Age: 53 No regular weight bearing exercise Drinks caffeinated beverages Onset of menses at age 16 Number of children 3 Impression: The patient has low bone mass, based on the Left Femoral Neck T-score. No significant bone loss was observed. Discussion: PATIENT UNDER TREATMENT WITH NO SIGNIFICANT BMD LOSS SINCE LAST EXAM. In an untreated patient, BMD typically declines with age. A lack of decline or gain is usually a sign that treatment is efficacious and fracture risk is reduced. It is important to ask patients whether they are taking their medications and to encourage continued and appropriate compliance with their osteoporosis therapies to reduce fracture risk. It is also important to review their risk factors and encourage appropriate calcium and vitamin D intakes, exercise, fall prevention and other lifestyle measures. Follow-Up: Consider a repeat BMD and Vertebral Fracture Assessment (VFA) exam in 2 years or sooner if medically necessary, to reassess this patient's status. Reported by: JAYCE on 09/26/2024 8:26:00 AM. Reviewed, dictated and finalized at location [facility]OS[facility]
--- OUTSIDE RECORDS SUMMARY | 2024-09-26 07:56 | XMS_ITS | Referral Summary ---
Author Organization [facility] Address [address] [place] [address] Care Team Providers Care Director Of Development Name Role Phone Lucille Rodriguez MD Primary Care Provider [phone] Source Comments [facility],non-owned Affiliates and Associated Physician Practices is amultiple site organization consisting of ambulatory clinics and hospital sitesin [place], [place], [place] and [place]. This disclosure is being madepursuant to the Care Everywhere program and may not contain all information available regarding this patient. Last updated 18.[facility] Allergies Active Allergy Reactions Criticality Noted Date Comments Codeine Urticaria Medium 08/27/2018 Penicillins Renal Injury High 08/27/2018 Medications * Be aware that medications may not be up to date on this document. Alwaysverify current medications with the patient. Medication Sig Dispensed Refills Start Date End Date Status SPIRONOLACTONE PO Active Cetirizine HCl (ZYRTEC PO) Active Immunizations Name Administration Dates Next Due iNFLUENZA VACCINE, RECOM-MEI, QUADR. (FLUBLOCK QUADRIVALENT; 18Y+) (RIV4) 08/27/2018 Social History Tobacco Use Types Packs/Day Years Used Date Smoking Tobacco: Former Cigarettes Q uit: 1992 Smokeless Tobacco: Never Sex and Gender Information Value Date Recorded Sex Assigned at Not on file Gender Identity Not on file Sexual Orientation Not on file Last Filed Vital Signs Vital Sign Reading Time Taken Comments Blood Pressure 152/90 04/07/2019 6:36 PM CDT Pulse 95 04/07/2019 6:36 PM CDT Temperature 36.8 C (98.2 F) 04/07/2019 6:36 PM CDT Respiratory Rate 16 04/07/2019 6:36 PM CDT Oxygen Saturation 99% 04/07/2019 6:36 PM CDT Inhaled Oxygen Concentration - - Weight 63.5 kg (140 lb) 04/07/2019 6:36 PM CDT Height 158.8 cm (5' 2.5 ) 04/07/2019 6:36 PM CDT Body Mass Index 25.2 04/07/2019 6:36 PM CDT Plan of Treatment Not on file Care Teams Director Of Development Relationship Specialty Start Date End Date Lucille Rodriguez MD [address] [place] [address] PCP - General 03/22/15
--- OUTSIDE RECORDS SUMMARY | 2024-09-26 07:56 | XMS_ITS | Clinical Summary ---
Author Organization [facility] Address [address] [place] [address] Care Team Providers Care Senior Mortgage Underwriter Name Role Phone He Ramires Primary Care Provider [phone] Allergies Active Allergy Reactions Criticality Noted Date Comments Codeine Hives High 09/05/2017 Penicillins Rash Low Medications spironolactone- hydroCHLOROthia zide (ALDACTAZIDE) 25-25 mg Tablet take 1 tablet by oral route every day 6 Active ergocalciferol (VITAMIN D2) 50,000 unit capsule take 1 capsule by oral route every week 6 Active methIMAzole (TAPAZOLE, NORTHYX) 5 mg tablet Take 5 mg by mouth. 8 Active cetirizine (ZyrTEC) 10 mg tablet 10 mg. 6 Active LORazepam (ATIVAN) 0.5 mg tablet Take 0.5 mg by mouth every 6 hours as needed for Anxiety. Active Saccharomyces boulardii (FLORASTOR) 250 mg Capsule Take 250 mg by mouth. Active multivitamin (DAILY-JANNETH) tablet Take 1 Tablet by mouth daily. Active potassium chloride (KLOR-CON) 20 mEq Extended Release tablet 8 Active timolol (TIMOPTIC) 0.5 % solution 8 Active bimatoprost (LUMIGAN) 0.01 % solution 0.01 %. 6 Active zoledronic zbux-ivfovyyb-b ater (RECLAST) 5 mg/100 mL Piggyback infuse by intravenous route once a year 6 Active Active Problems Problem Noted Date Diagnosed Date Dysplastic nevus of trunk 04/08/2018 Skin lesion of breast 03/06/2018 Changing skin lesion 03/06/2018 Family History Medical History Relation Name Comments Cancer Maternal Grandfather Bone - in 40s Relation Name Status Comments Maternal Grandfather Social History Tobacco Use Types Packs/Day Years Used Date Smoking Tobacco: Former Cigarettes 0.8 17 0 12/21/1975 - 12/20/1992 Smokeless Tobacco: Never Alcohol Use Standard Drinks/Week Comments Yes 0 (1 standard drink = 0.6 oz pur e alcohol) occasional Comments No Sex and Gender Information Value Date Recorded Sex Assigned at Not on file Legal Sex Female 8:07 AM CDT Gender Identity Not on file Sexual Orientation Not on file Last Filed Vital Signs Vital Sign Reading Time Taken Comments Blood Pressure 113/76 04/30/2018 12:46 PM CDT Pulse 67 04/30/2018 12:46 PM CDT Temperature 36.6 C (97.8 F) 04/30/2018 12:46 PM CDT Respiratory Rate - - Oxygen Saturation 98% 04/30/2018 12:46 PM CDT Inhaled Oxygen Concentration - - Weight 62.6 kg (138 lb) 04/30/2018 12:46 PM CDT Height 157.5 cm (5' 2 ) 04/30/2018 12:46 PM CDT Body Mass Index 25.24 04/30/2018 12:46 PM CDT Plan of Treatment Health Maintenance Due Date Last Done Comments DTAP/TDAP/TD VACCINES (1 - Tdap) 1979 CERVICAL CANCER SCREENING 1990 BREAST CANCER SCREENING 2000 COLORECTAL SCREENING 2005 Colorectal Cancer Screening 2005 FIT-DNA Q 3 years 2005 FIT/FOBT Q 1 year 2005 Flex Sig/CT Colonography Q 5 years 2005 ZOSTER VACCINE (1 of 2) 2010 INFLUENZA VACCINE (#1) 2024 RSV VACCINE (60+ or ) (1 - 1-dose 75+ series) 2035 Insurance Care Teams Senior Mortgage Underwriter Relationship Specialty Start Date End Date He Ramires DO PCP - General Internal Medicine 04/08/18
--- OUTSIDE RECORDS SUMMARY | 2024-09-26 07:56 | XMS_ITS | Patient Health Summary ---
Author Organization [facility] Address [address] [place] [address] Care Team Providers Care Preschool Teacher Name Role Phone Lucille Rodriguez MD Primary Care Provider [phone] Note from [facility],non-owned Affiliates and Associated Physician Practices is amultiple site organization consisting of ambulatory clinics and hospital sitesin [place], [place]. This disclosure is being madepursuant to the Care Everywhere program and may not contain all information available regarding this patient. Last updated 18.[facility] Allergies * Codeine(Urticaria) -Medium Criticality * Penicillins(Renal Injury) -High Criticality Medications * Be aware that medications may not be up to date on this document. Alwaysverify current medications with the patient. * SPIRONOLACTONE PO * Cetirizine HCl (ZYRTEC PO) Immunizations * iNFLUENZA VACCINE, RECOM-MEI, QUADR. (FLUBLOCK QUADRIVALENT; 18Y+) (RIV4)(Given 08/27/2018) Social History Tobacco Use Types Packs/Day Years Used Date Smoking Tobacco: Former Cigarettes Q uit: 1993 Smokeless Tobacco: Never Sex and Gender Information [...] Mass Index 25.2 04/07/2019 6:36 PM CDT Procedures * CULTURE RESPIRATORY UPPER(Performed 04/07/2019) Performed for Tonsillitis * STREP A SCREEN - POINT OF CARE (AMB) STL(Performed 04/07/2019) Performed for Tonsillitis Results * [facility] Throat Culture (04/07/2019 6:48 PM CDT) Upper Respiratory Culture Final report [facility] ACCOUNT BILL Result 1 [facility] ACCOUNT BILL Comment:Routine respiratory junie Microbiology ENTIRE THROAT (SURFACE REGION OF NECK) / Unknown 04/07/2019 6:48 PM CDT 04/08/2019 Narrative Resulting Agency Comment Lab Testing performed at: [facility] [address] [id number] Tessie Buckley APRN-ROOFING PLANT SUPERVISOR LAB - MICROBIO LOGY ORDERABLES [facility] ACCOUNT BILL [address] [place] [address] * STREP A SCREEN - POINT OF CARE (AMB) STL (04/07/2019) Strep A Rapid POCT Negative Negative Strep A Internal Control Present Lot # [id number] Expiration Date 07/21/2020 Throat ENTIRE THROAT (SURFACE REGION OF NECK) / Unknown 04/07/2019 Tessie Buckley APRN-ROOFING PLANT SUPERVISOR LAB - POINT OF CARE ORDERABLES Care Teams Preschool Teacher Relationship Specialty Start Date End Date Lucille Rodriguez MD [address] [facility] [address] [place] [address] PCP - General 03/22/15
--- OUTSIDE RECORDS SUMMARY | 2024-09-26 07:56 | XMS_ITS | Clinical Summary ---
Author Organization [facility] Address [address] [place] [address] Care Team Providers Care Mohs Surgeon/General Dermatologist Name Role Phone Lucille Rodriguez MD Primary Care Provider [phone] Source Comments [facility],non-owned Affiliates and Associated Physician Practices is amultiple site organization consisting of ambulatory clinics and hospital sitesin [place], [place]. This disclosure is being madepursuant to the Care Everywhere program and may not contain all information available regarding this patient. Last updated 18.[facility] Allergies Active Allergy Reactions Criticality Noted Date [...] 04/07/2019 6:36 PM CDT Plan of Treatment Health Maintenance Due Date Last Done Comments COLOGUARD (AGES 45-75) - COL ON CA SCREENING 1960 COLON MONITORING 1960 COLONOSCOPY - COLON CA SCREENING 1960 CT COLONOGRAPHY - COLON CA SCREENING 1960 Colorectal Cancer Screening 1960 FIT - COLON CA SCREENING 1960 FLEX SIG - COLON CA SCREENING 1960 LIPID TESTING 1960 MAMMOGRAM 1960 PAP SMEAR 1960 HIV SCREENING 1975 HEPATITIS C SCREENING 06/25/1978 DTAP/TDAP/TD VACCINES (1 - Tdap) 1979 PNEUMOCOCCAL VACCINE 50+ (1 of 1 - PCV) 2010 ZOSTER VACCINE (1 of 2) 2010 SCREENING FOR DIABETES 04/07/2019 COVID-19 VACCINE ( - 2023-2 5 season) 2024 INFLUENZA VACCINE (#1) 2024 08/27/2018 DEPRESSION SCREENING 07/22/2024 Respiratory Syncytial Virus (RSV) Vaccine Pt: or over 60 yrs (1 - 1-dose 75+ series) 2035 HEPATITIS B VACCINE Aged Out No longe r eligible based on patient's age to complete this topic HIB VACCINE Aged Out No longer eligi ble based on patient's age to complete this topic HPV VACCINE Aged Out No longer eligi ble based on patient's age to complete this topic MENINGOCOCCAL (Group B) VACCINE Aged Out No longer eligible based on patient's age to complete this topic MENINGOCOCCAL VACCINE Aged Out No cyndee chemo eligible based on patient's age to complete this topic PNEUMOCOCCAL VACCINE Aged Out No long er eligible based on patient's age to complete this topic Care Teams Mohs Surgeon/General Dermatologist Relationship Specialty Start Date End Date Lucille Rodriguez MD [address] [place] [address] PCP - General 03/22/15
== END 2024-09-26 07:50 | disposition home or self-care (01) ==
LOC: ANHIMG 07:54
PROVIDERS: PCP Nurse Practitioner Family; Visit Provider Nurse Practitioner
DX: M85.89 Other specified disorders of bone density and structure, multiple sites (principal); Z78.0 Asymptomatic menopausal state; Z13.820 Encounter for screening for osteoporosis
CPT/HCPCS: 77080

== ENCOUNTER 2024-10-30 08:14 | Outpatient (CLI) | payer OTHER, SELFPAY ==
--- NOTE | ~2024-10-30 | MM_ITS ---
EXAMINATION: MM screening nicko BI w liu HISTORY: Screening TECHNIQUE: Craniocaudal and mediolateral oblique 3-D tomosynthesis images were obtained and synthetic 2-D images were generated. CAD analysis was submitted and interpreted. COMPARISON: Comparison to multiple prior studies sequentially, with oldest reviewed study dated 03/25. BREAST PARENCHYMAL COMPOSITION: Not dense: There are scattered areas of fibroglandular density. FINDINGS: There is no evidence of suspicious mass, calcification, or architectural distortion to sugg est malignancy in either breast. There has been no suspicious interval change. IMPRESSION: 1. No mammographic evidence of malignancy. 2. Recommend routine screening mammography in one year. BI-RADS Category 1: Negative Reviewed, dictated and finalized at location A.
--- OUTSIDE RECORDS SUMMARY | 2024-10-30 08:23 | XMS_ITS | Encounter Summary ---
Author Organization [facility] Address [address] [place] [address] Care Team Providers Care Wool Hanker Name Role Phone He Ramires DO Primary Care Provider [phone] Encounter Details Date Type Department Care Team (Late st Contact Info) Description 10/27/2024 Results Follow-Up [facility] [address] [place] [address] [place] [phone] [place] [id number] [place] [id number] Social History Tobacco Use Types Packs/Day Years Used Date Smoking Tobacco: Former Smokeless Tobacco: Never Alcohol Use Standard Drinks/Week Comments Yes 0 (1 standard drink = 0.6 oz pur e alcohol) PHQ-2 Answer Date Recorded PHQ-2 Total Score (If total score is 3 or more points, staff should administer the PHQ-9) 0 10/24/2023 Personal Safety Answer Date Recorded Have you ever been in or are you currently in a harmful physical or emotional relationship or is someone making you feel afraid or unsafe? Denies 01/15/2024 Comments Unknown Sex and Gender Information Value Date Recorded Sex Assigned at Not on file Legal Sex Female 3:45 AM SALES REPRESENTATIVE AIRCRAFT Gender Identity Not on file Sexual Orientation Not on file documented as of this encounter Plan of Treatment Not on file documented as of this encounter Visit Diagnoses Not on filedocumented in this encounter Care Teams Wool Hanker Relationship Specialty Start Date End Date He Ramires DO PCP - General Internal Medicine 04/04/20 documented as of this encounter
--- OUTSIDE RECORDS SUMMARY | 2024-10-30 08:23 | XMS_ITS | Clinical Summary ---
Author Organization [facility] Address [address] [place] [address] Care Team Providers Care Harvest Manager Name Role Phone He Ramires Primary Care Provider Allergies Active Allergy Reactions Criticality Noted Date [...] % solution 0.01 %. 6 Active zoledronic mcat-wqmssnqb-a ater (RECLAST) 5 mg/100 mL Piggyback infuse [...] Comments DTAP/TDAP/TD VACCINES (1 - Tdap) 1979 HPV/Cotest (21-29) 1981 CERVICAL CANCER SCREENING 1990 HPV/Cotest (30-65) 1990 PAP SMEAR 1990 BREAST CANCER SCREENING 2000 COLORECTAL SCREENING 2005 Colorectal Cancer Screening 2005 FIT-DNA Q 3 years 2005 FIT/FOBT Q 1 year 2005 Flex Sig/CT Colonography Q 5 years 2005 ZOSTER VACCINE (1 of 2) 2010 INFLUENZA VACCINE (#1) 2024 RSV VACCINE (60+ or ) (1 - 1-dose 75+ series) 2035 Insurance Care Teams Harvest Manager Relationship Specialty Start Date End Date He Ramires DO PCP - General Internal Medicine 04/08/18
--- OUTSIDE RECORDS SUMMARY | 2024-10-30 08:23 | XMS_ITS | Clinical Summary ---
Author Organization [facility] Physician Office Building [address] [place] [id number] Care Team Providers Care Mail Handlers Supervisor Name Role Phone He Ramires DO Primary Care Provider [phone] Allergies Active Allergy Reactions Criticality Noted Date Comments Codeine Hives Medium 09/05/2017 Penicillins Rash Reaction: Rash, Medications ergocalciferol (VITAMIN D) 50,000 unit capsule take 1 capsule by oral route every week 0 0 016 Active timolol (TIMOPTIC) 0.5 % ophthalmic solution instill 1 drop by intraocular route every morning 0 0 016 Active spironolactone-hy droCHLOROthiazide (ALDACTAZIDE) 25-25 mg per tablet take 1 tablet by oral route every day 0 0 016 Active cetirizine (ZyrTEC) 10 mg tablet take 1 tablet by oral route every day 0 0 016 Active bimatoprost (LUMIGAN) 0.01 % ophthalmic drops instill 1 drop by intraocular route every morning 0 0 016 Active rosuvastatin (CRESTOR) 20 mg tablet 024 Active latanoprost (XALATAN) 0.005 % ophthalmic solution 025 Active levothyroxine (SYNTHROID) 75 mcg tabletIndications :Acquired hypothyroidism Take 1 tablet (75 mcg total) by mouth daily 90 tablet 3 025 Active ginkgo biloba 60 mg capsule Take 1 tablet by mouth daily 2024 Discontinued levothyroxine (SYNTHROID) 75 mcg tabletIndications :Acquired hypothyroidism Take 1 tablet (75 mcg total) by mouth daily 90 tablet 3 024 2024 Discontinued levothyroxine (SYNTHROID) 75 mcg tabletIndications :Acquired hypothyroidism TAKE 1 TABLET DAILY 90 tablet 3 025 2024 Discontinued(R joe) Active Problems Problem Noted Date Diagnosed Date Prediabetes 10/27/2024 Acquired hypothyroidism 04/04/2020 Assessment & Plan (10/30/2023 1:47 PM CDT): Chronic, stable Reviewed patient's recent thyroid lab results TSH at goal Continue current dose of levothyroxine therapy Follow-up in 1 year Assessment & Plan (08/29/2022 1:02 PM GLOBAL LEAD): Continue current dose of levothyroxine therapy. Check TSH today Further plans based on repeat thyroid labs Follow-up in 1 year Assessment & Plan (08/29/2021 2:34 PM GLOBAL LEAD): Continue current dose of levothyroxine therapy. Check TSH today Further plans based on repeat thyroid labs Follow-up in 1 year Assessment & Plan (08/09/2020 1:17 PM GLOBAL LEAD): Continue current dose of levothyroxine therapy. Check TSH today Further plans based on repeat thyroid labs Check TSH every 3 months Follow-up in 1 year Assessment & Plan (04/04/2020 4:05 PM CDT): Advised to continue current dose of levothyroxine therapy Recheck thyroid labs today Further plans based on lab results Follow up in 4 months Anxiety 03/09/2017 Closed Colles' fracture 01/03/2009 Resolved Problems Problem Noted Date Diagnosed Date Resolved Date Hyperthyroidism 03/09/2017 04/04/2020 Assessment & Plan (03/09/2017 7:51 PM CDT): Sec. To Grave's disease Off Methimazole , repeat TFT - stable - pt. asymptomatic - advised to hold off Methimazole and repeat labs in 4 weeks, if continue to be euthyroid, will repeat labs then every 3 months - but if repeat labs in 4 weeks showed signs of Hyperthyroidism , then restart Methimazole Graves disease 03/09/2017 04/04/2020 Assessment & Plan (09/06/2019 10:12 PM GLOBAL LEAD): Resolved Off Methimazole since 09/2018 Pt TFT over last year WNL Pt is released from our care And advised to follow up back with PCP recommend atleast annual TSH check Assessment & Plan (10/28/2018 12:13 PM CDT): Pt has been treated with oral methimazole recently took her off the medication, As pt labs stable WNL Pt clinically euthyroid today Advised to check TFT every 3 months for next one year Assessment & Plan (03/20/2018 7:04 AM CDT): Reviewed recent labs from today Advised to c/w Methimazole 5 mg oral daily Follow up labs in 4 months Plan to stop methimazole next time if pt TSI remain negative Assessment & Plan (09/08/2017 9:52 AM GLOBAL LEAD): Repeat TFT today and based on the results , advise to continue same dos eof Methimazole 5 mg oral daily - recheck TFT every 3 months - follow up in 6 months Important Information About your antithyroid Medication Instruction to patients taking Tapazole (methimazole) for the treatment of hyperthyroidism Name: Wilma Rao Date of : 1960 Medication : Methimazole Dose : 5 mg Frequency: once daily Take your medication every day as directed by your physician unless you notice the problems listed below: If you notice a skin rash, then call your doctor as soon as possible. If you notice a sore throat, sores in the mouth, or develop a fever: Call your doctor as soon as possible You need to go to your doctor s office or hospital to have a blood test (Complete Blood Count and Differential Count) If the blood test is normal, then your doctor will instruct you to continue taking the anti-thyroid medication. DO NOT stop the anti-thyroid medication unless your doctor tells you to do so. As long as you are taking this anti-thyroid medication, you must see your physician regularly to keep the medication properly adjusted based on your thyroid blood tests. Then please contact your doctor immediately Encounters Date Type Department Care Team Description 10/27/2024 10:20 AM CDT Lab [address] [id number] Acquired hypothyroidism 10/27/2024 10:00 AM CDT Office Visit [facility] of [address] [phone] Lucia Fuentes MD Acquired hypothyroidism (Primary Dx); Prediabetes 10/27/2024 Results Follow-Up [facility] of [address] [phone] Lucia Fuentes MD from Last 3 Months Surgical History Surgery Date Site/Laterality Comments TUBAL LIGATION Bilateral tubal ligation LUMBAR SPINE SURGERY Surgery, lumbar spine SINUS SURGERY ROTATOR CUFF REPAIR Right ABLATION GALLBLADDER SURGERY Medical History Medical History Date Comments Hyperthyroidism Hyperthyroidism Hypertension Hypertension Anxiety disorder Anxiety Osteopenia Osteopenia Glaucoma Glaucoma; Latera lity: bilateral Chronic sinusitis Chronic sinusi tis; Comments: 07/06/2016 - Sinus surgery in 1997 Rotator cuff syndrome 2011 Torn rotat or cuff; Comments: 07/06/2016 - Rotator cuff repair; Laterality: right Family History Medical History Relation Name Comments Other Father Pulmonary Fibro sis; Cause of : Pulmonary Fibrosis Bone cancer Maternal Grandfather Cancer, bone; Diabetes type II Maternal Grandmother Brigida betes mellitus type 2; Hypertension Maternal Grandmother Hyperte nsion; Stroke Maternal Grandmother Stroke; Heart failure Mother Congestive hea rt failure; Cause of : Congestive heart failure Hypertension Mother's Brother Hypertensio n; Relation Name Status Comments Father Maternal Grandfather Maternal Grandmother Mother Mother's Brother Social History Tobacco Use Types Packs/Day Years Used Date Smoking Tobacco: Former Smokeless Tobacco: Never Tobacco Cessation:Counseling Given: Not Answered Alcohol Use Standard Drinks/Week Comments Yes 0 [...] on file Legal Sex Female 3:45 AM GLOBAL LEAD Gender Identity Not on file Sexual Orientation Not on file Obstetrics History Last Filed Vital Signs Vital Sign Reading Time Taken Comments Blood Pressure 122/80 10/27/2024 10:01 AM CDT Pulse 66 10/27/2024 10:01 AM CDT Temperature 36.6 C (97.9 F) 01/15/2024 10:57 AM CDT Respiratory Rate 15 10/27/2024 10:01 AM CDT Oxygen Saturation 98% 01/15/2024 10:57 AM CDT Inhaled Oxygen Concentration - - Weight 63 kg (139 lb) 10/27/2024 10:01 AM CDT Height 157.5 cm (5' 2 ) 10/27/2024 10:01 AM CDT Body Mass Index 25.42 10/27/2024 10:01 AM CDT Plan of Treatment Health Maintenance Due Date Last Done Comments Breast Cancer Screening-Mammogram 1960 Cervical Cancer Screening 1960 Colon Cancer Screening-Colonoscopy 1960 Hepatitis C Screening 1960 Hepatitis B Screening 1978 Regular Well Visit/Exam 18-64 1978 Zoster Vaccine (1 of 2) 2010 Depression Screening 10/23/2024 10/24/2023, 08/29/2021, 08/08/2020, Additional history exists Influenza Vaccine (Season Ended) 2025 06/21/2019, 08/27/2018 DTaP/Tdap/Td Vaccine (2 - Td or Tdap) 01/09/2029 01/09/2019 Pneumococcal vaccine <65 Aged Out No longer eligible based on patient's age to complete this topic Procedures Procedure Name Priority Date/Time Associated Diagnosis Comments THYROID FUNCTION CASCADE Routine 10/27/2024 10:18 AM CDT Acquired hypothyroidism from Last 3 Months Results * Thyroid Function [place] (10/27/2024 10:18 AM CDT) TSH 1.05 0.30 - 4.20 mcIUnit/mL Blood 10/27/2024 10:1 8 AM CDT 10/27/2024 11:06 AM CDT Lucia Mitchell MD LAB BLOOD ORDERABLE S Final Result Performing Organization Address City/[place] [id number] [address] [place] [address] from Last 3 Months Insurance [facility]/PPO Address: [place] [address] [facility] CHO[facility] H[facility]/PPO Address: [address] [address] [place] [address] [facility] CHOICE [facility] H[facility]/PPO Address: [address] [address] [place] [address] Care Teams Mail Handlers Supervisor Relationship Specialty Start Date End Date He Ramires DO PCP - General Internal Medicine 04/04/20
--- OUTSIDE RECORDS SUMMARY | 2024-10-30 08:23 | XMS_ITS | Clinical Summary ---
Author Organization [email or web address] Address [address] [facility] [place] [address] Care Team Providers Care Lining Cementer Name Role Phone Lucille Rodriguez MD Primary Care Provider [phone] Source Comments [email or web address],non-owned Affiliates and Associated Physician Practices is amultiple site organization consisting of ambulatory clinics and hospital sitesin [place], [place], [place] and [place]. This disclosure is being madepursuant to the Care Everywhere program and may not contain all information available regarding this patient. Last updated 18.[email or web address] Allergies Active Allergy Reactions Criticality Noted Date [...] VACCINE ( - 2023-2 5 season) 2024 DEPRESSION SCREENING 07/22/2024 INFLUENZA VACCINE (Season Ended) 2025 08/27/19 19 Respiratory Syncytial Virus (RSV) Vaccine Pt: or [...] to complete this topic MENINGOCOCCAL (Group B) VACC INE SHARED DECISION-MAKING Aged Out No longer eligibl e based on patient's age to complete this topic MENINGOCOCCAL GROUPS A/C/Y/W VACCINE Aged Out No longer eligible b ased on patient's age to complete this topic PNEUMOCOCCAL VACCINE Aged Out No long er eligible based on patient's age to complete this topic Care Teams Lining Cementer Relationship Specialty Start Date End Date Lucille Rodriguez MD [address] [facility] [address] [place] [id number] PCP - General 03/22/15
--- OUTSIDE RECORDS SUMMARY | 2024-10-30 08:23 | XMS_ITS | Referral Summary ---
Author Organization [facility] Physician Office Building [address] [place] [phone] Care Team Providers Care Narcotics And Vice Detective Name Role Phone He Ramires DO Primary Care Provider [phone] Encounters Date Type Department Care Team Description 10/27/2024 Results Follow-Up [facility] [address] [phone] Lucia Fuentes MD 10/27/2024 10:20 AM CDT Lab [address] [phone] Acquired hypothyroidism 10/27/2024 10:00 AM CDT Office Visit [facility] [address] [phone] Lucia Fuentes MD Acquired hypothyroidism (Primary Dx); Prediabetes from Last 3 Months Allergies Active Allergy Reactions Criticality Noted Date [...] TABLET DAILY 90 tablet 3 025 2024 Discontinued(Paula diaz) Active Problems Problem Noted Date Diagnosed Date Prediabetes 10/27/2024 Acquired hypothyroidism 04/04/2020 Assessment & Plan (10/30/2023 1:47 PM CDT): Chronic, stable Reviewed patient's recent thyroid lab results TSH at goal Continue current dose of levothyroxine therapy Follow-up in 1 year Assessment & Plan (08/29/2022 1:02 PM COLD STRIP FEEDER): Continue current dose of levothyroxine therapy. Check TSH today Further plans based on repeat thyroid labs Follow-up in 1 year Assessment & Plan (08/29/2021 2:34 PM COLD STRIP FEEDER): Continue current dose of levothyroxine therapy. Check TSH today Further plans based on repeat thyroid labs Follow-up in 1 year Assessment & Plan (08/09/2020 1:17 PM COLD STRIP FEEDER): Continue current dose of levothyroxine therapy. Check [...] 04/04/2020 Assessment & Plan (09/06/2019 10:12 PM COLD STRIP FEEDER): Resolved Off Methimazole since 09/2018 Pt TFT [...] negative Assessment & Plan (09/08/2017 9:52 AM COLD STRIP FEEDER): Repeat TFT today and based on the [...] tests. Then please contact your doctor immediately Social History Tobacco Use Types Packs/Day Years [...] on file Legal Sex Female 3:45 AM COLD STRIP FEEDER Gender Identity Not on file Sexual Orientation [...] 10/27/2024 10:01 AM CDT Plan of Treatment Not on file Procedures Procedure Name Priority Date/Time Associated Diagnosis Comments THYROID FUNCTION CASCADE Routine 10/27/2024 10:18 AM CDT Acquired hypothyroidism from Last 3 Months Results * Thyroid Function [place] (10/27/2024 10:18 AM CDT) TSH 1.05 0.30 - 4.20 mcIUnit/mL Blood 10/27/2024 10:1 8 AM CDT 10/27/2024 11:06 AM CDT Lucia Mitchell MD LAB [place]LOOD [place] [id number] [address] Department [place] [address] from Last 3 Months Insurance [facility] CHOICE PLUS [facility] CHOICE PLUS [place] [id number] [facility] CHOICE PLUS Care Teams Narcotics And Vice Detective Relationship Specialty Start Date End Date He Ramires DO PCP - General Internal Medicine 04/04/20
== END 2024-10-30 08:15 | disposition home or self-care (01) ==
PROVIDERS: PCP Nurse Practitioner Family; Visit Provider Nurse Practitioner
DX: Z12.31 Encounter for screening mammogram for malignant neoplasm of breast (principal)
CPT/HCPCS: 77063; 77067

== ENCOUNTER 2024-11-19 08:47 | Outpatient (CLI) | payer OTHER, SELFPAY ==
--- NOTE | 2024-11-19 08:58 | ECHO_ITS ---
Patient Info Name: Wilma Scott Age: 64 years : 1960 Gender: Female Ht: 63 in Wt: 137 lbs BSA: 1.67 m2 HR: 57 bpm BP: 123 / 86 mmHg Technical Quality: Good Exam Date: 11/19/2024 9:05 AM Exam Location: Echo Lab Patient Status: Outpatient Admit Date: 11/19/2024 Staff Ordering Physician: Kacey Lemons APRN Roto Mixer Operator: Sloane Hzd RDCS Attending Provider: Kacey Lemons APRN Referring Physician: Vesta CALHOUN; Exam Type: CA echo doppler color flow Study Info Indications I10 - Essential (primary) hypertension Complete two-dimensional, color flow and Doppler transthoracic echocardiogram is performed. Summary 1. Complete two-dimensional, color flow and Doppler transthoracic echocardiogram is performed. 2. Left ventricular chamber dimension is normal. 3. Left ventricular systolic function is normal, estimated at 60-65%. 4. The left ventricular diastolic function is normal. 5. E/e' 8 is minimally elevated. 6. There is mild mitral valve regurgitation. 7. There is mild tricuspid valve regurgitation. 8. No pulmonary hypertension, estimated pulmonary arterial systolic pressure is 26 mmHg. 9. There is trace pulmonic regurgitation. Left Ventricle E/e' 8 is minimally elevated. Left ventricular chamber dimension is normal. Left ventricular systolic function is normal, estimated at 60-65%. The left ventricular diastolic function is normal. Right Ventricle Right ventricular systolic function is normal and with normal TAPSE 1.9 cm. Right ventricular chamber dimension is normal. Left Atria Left atrial chamber dimension is normal. Right Atria Right atrial chamber dimension is normal. Aortic Valve The aortic valve is trileaflet. There is no aortic valve stenosis. There is no aortic valve regurgitation. Pulmonic Valve There is trace pulmonic regurgitation. Mitral Valve There is no mitral valve stenosis. There is mild mitral valve regurgitation. Tricuspid Valve There is mild tricuspid valve regurgitation. No pulmonary hypertension, estimated pulmonary arterial systolic pressure is 26 mmHg. Pericardium/Pleural There is no pericardial effusion. Inferior Vena Cava Normal inferior vena cava with >50% collapse upon inspiration consistent with normal right atrial pressure, 5 mmHg. Aorta The aortic root size at the sinus of Valsalva is normal. Left Ventricular Outflow Tract Name Value Normal LVOT 2D LVOT Diameter 1.6 cm LVOT Doppler LVOT Peak Gradient 4 mmHg LVOT Mean Gradient 2 mmHg LVOT VTI 24 cm LVOT VTI/AV VTI Ratio 0.9 LVOT Stroke Volume 50 ml LVOT CO 8.4 l/min LVOT CI 5.0 l/min/m2 Pulmonic Valve Name Value Normal PV Doppler PV Peak Gradient 2 mmHg Mitral Valve Name Value Normal MV Doppler MV Decel Terry 482 cm/s2 MV PHT 50 ms MV Area (PHT) 4.4 cm2 4.0-5.0 MV Diastolic Function MV E Peak Velocity 83 cm/s MV A Peak Velocity 68 cm/s MV E/A 1.2 MV Decel Time 172 ms MV Annular TDI MV E/e' (Septal) 9.5 <=8.0 MV E/e' (Lateral) 8.2 <=8.0 MV E/e' (Average) 8.8 Tricuspid Valve Name Value Normal TV Regurgitation Doppler TR Peak Velocity 228 cm/s TR Peak Gradient 17 mmHg Estimated PAP/RSVP RA Pressure 5 mmHg <=5 PA Systolic Pressure 26 mmHg <36 RV Systolic Pressure 26 mmHg <36 Aorta Name Value Normal Ascending Aorta Ao Root Diameter (MM) 2.7 cm Ao Root Diam Index (MM) 1.6 cm/m2 Aortic Valve Name Value Normal AV Doppler AV Peak Velocity 126 cm/s AV Peak Gradient 6 mmHg AV Mean Gradient 3 mmHg AV VTI 28 cm AV Area (Cont Eq VTI) 1.8 cm2 >=3.0 AV Area (Cont Eq Lio) 1.7 cm2 AV Regurgitation 2D LVOT Area 2.1 cm2 Ventricles Name Value Normal LV Dimensions 2D/MM IVS Diastolic Thickness (2D) 0.9 cm 0.6-1.0 LVID Diastole (2D) 3.7 cm 3.8-5.2 LVIW Diastolic Thickness (2D) 0.9 cm 0.6-0.9 LVID Systole (2D) 2.5 cm 2.2-3.5 LVOT Diameter 1.6 cm LV Mass (2D Cubed) 93.79 g 67.00-162.00 LV Mass Index (2D Cubed) 56 g/m2 43-95 Relative Wall Thickness (2D) 0.47 LV Fractional Shortening/Ejection Fraction 2D/MM LV Fractional Shortening (2D) 32 % 27-45 LV EF (2D Teicholz) 61 % 54-74 LV Diastolic Volume (4C MOD) 55 ml LV EF (4C MOD) 63 % LV Diastolic Volume (2C MOD) 55 ml LV EF (2C MOD) 61 % LV Diastolic Volume (BP MOD) 56 ml 46-106 LV Diastolic Volume Index (BP MOD) 33 ml/m2 29-61 LV Systolic Volume (BP MOD) 21 ml 14-42 LV Systolic Volume Index (BP MOD) 13 ml/m2 8-24 LV EF (BP MOD) 62 % 54-74 LV Diastolic Length (4C) 7.4 cm LV Systolic Length (4C) 5.6 cm LV Stroke Volume (4C MOD) 35 ml RV Dimensions 2D/MM RVID Diastole (2D) 3.3 cm 2.5-3.5 Atria Name Value Normal LA Dimensions LA Dimension (MM) 3.0 cm 2.7-3.8 LA Volume (4C A-L) 35 ml LA Volume (BP A-L) 34 ml RA Dimensions RA Area (4C) 18.2 cm2 <=18.0 Report Signatures
--- OUTSIDE RECORDS SUMMARY | 2024-11-19 08:58 | XMS_ITS | Encounter Summary ---
Author Organization [facility] Healthcare Address [address] [place] [address] Care Team Providers Care Air Director Name Role Phone He Ramires DO Primary Care Provider [phone] Kacey Lemons NP Primary Care Provider [phone] Encounter Details Date Type Department Care Team (Late st Contact Info) Description 10/27/2024 Results Follow-Up [facility] [id number] [place] [phone] [place] [id number] [place] [id number] Social History Tobacco Use Types Packs/Day [...] on file Legal Sex Female 3:45 AM STOCKFEED MILLER Gender Identity Not on file Sexual Orientation Not on file documented as of this encounter Plan of Treatment Not on file documented as of this encounter Visit Diagnoses Not on filedocumented in this encounter Care Teams Air Director Relationship Specialty Start Date End Date He Ramires DO PCP - General Internal Medicine 04/04/20 11/02/24 Kacey Lemons NP [phone] [address] PCP - General Nurse Practitioner 11/03/24 documented as of this encounter
--- OUTSIDE RECORDS SUMMARY | 2024-11-19 08:58 | XMS_ITS | Referral Summary ---
Author Organization [facility] [address] [place] [address] Care Team Providers Care Vulcanizer Name Role Phone Kacey Lemons NP Primary Care Provider [phone] Encounters Date Type Department Care Team Description 11/17/2024 Results Follow-Up [facility] Cardiology [address] [place] [address] [place] [phone] Bessy Rodriguez RN 11/16/2024 8:15 AM CDT Ancillary Procedure [facility] Cardiology [address] [place] [address] [address] [place] [phone] Arrived 11/12/2024 Telephone [facility] Cardiology [address] [place] [address] [place] [phone] Selina Serrano MD 11/05/2024 Telephone [facility] Cardiology [address] [place] [address] [address] [place] [phone] Selina Serrano MD 11/03/2024 Orders Only [facility] Cardiology [address] [place] [address] [place] [phone] Kacey Lemons NP 11/03/2024 8:30 AM CDT Office Visit [facility] Cardiology [address] [place] [address] [address] [place] [phone] Selina Serrano MD Old ID (myocardial infarction); Chest pain, unspecified type 10/27/2024 Results Follow-Up [facility] Specialists of [address] [address] Lucia Fuentes MD 10/27/2024 10:20 AM CDT Lab [address] [address] Acquired hypothyroidism 10/27/2024 10:00 AM CDT Office Visit [facility] [address] [place] [address] [address] [place] [address] Lucia Fuentes MD Acquired hypothyroidism (Primary Dx); Prediabetes from Last 3 Months Allergies Active Allergy Reactions Criticality Noted Date Comments Codeine Hives Medium 09/05/2017 Brimonidine-Timolol Other (See comments),Redness Low 11/05/2024 Eye irritation Penicillins Rash Reaction: Rash, Medications ergocalciferol (VITAMIN [...] route every day 0 0 016 Active rosuvastatin (CRESTOR) 20 mg tablet 024 Active latanoprost (XALATAN) 0.005 % ophthalmic solution 025 Active levothyroxine (SYNTHROID) 75 mcg tabletIndications :Acquired hypothyroidism Take 1 tablet (75 mcg total) by mouth daily 90 tablet 3 Active kmugmiyhpqrv-Fm-b meredith-minerals tablet Take by mouth Active aspirin 81 mg enteric coated tablet Take 1 tablet (81 mg total) by mouth daily 90 tablet 3 025 2025 Active metoprolol tartrate (LOPRESSOR) 25 mg immediate release tablet Take 0.5 tablets (12.5 mg total) by mouth 2 (two) times a day 90 tablet 3 025 2025 Active bimatoprost (LUMIGAN) 0.01 % ophthalmic drops instill 1 drop by intraocular route every morning 0 0 016 2024 Discontinued(P atient Reported) ginkgo biloba 60 mg capsule Take 1 tablet by mouth daily 2024 Discontinued levothyroxine (SYNTHROID) 75 mcg tabletIndications :Acquired hypothyroidism TAKE 1 TABLET DAILY 90 tablet 3 025 2024 Discontinued(R eorder) metoprolol tartrate (LOPRESSOR) 25 mg immediate release tablet Take 0.5 tablets (12.5 mg total) by mouth 2 (two) times a day 90 tablet 3 025 2024 Discontinued(R eorder) Active Problems Problem Noted Date Diagnosed Date Prediabetes 10/27/2024 Acquired hypothyroidism 04/04/2020 Assessment & Plan (10/30/2023 1:47 PM CDT): Chronic, stable Reviewed patient's recent thyroid lab results TSH at goal Continue current dose of levothyroxine therapy Follow-up in 1 year Assessment & Plan (08/29/2022 1:02 PM TAKE UP SUPERVISOR): Continue current dose of levothyroxine therapy. Check TSH today Further plans based on repeat thyroid labs Follow-up in 1 year Assessment & Plan (08/29/2021 2:34 PM TAKE UP SUPERVISOR): Continue current dose of levothyroxine therapy. Check TSH today Further plans based on repeat thyroid labs Follow-up in 1 year Assessment & Plan (08/09/2020 1:17 PM TAKE UP SUPERVISOR): Continue current dose of levothyroxine therapy. Check [...] 04/04/2020 Assessment & Plan (09/06/2019 10:12 PM TAKE UP SUPERVISOR): Resolved Off Methimazole since 09/2018 Pt TFT [...] negative Assessment & Plan (09/08/2017 9:52 AM TAKE UP SUPERVISOR): Repeat TFT today and based on the [...] on file Legal Sex Female 3:45 AM TAKE UP SUPERVISOR Gender Identity Not on file Sexual Orientation Not on file Last Filed Vital Signs Vital Sign Reading Time Taken Comments Blood Pressure 128/74 11/03/2024 8:28 AM CDT Pulse 63 11/03/2024 8:28 AM CDT Temperature 36.6 C (97.9 F) 01/15/2024 10:57 AM CDT Respiratory Rate 15 10/27/2024 10:01 AM CDT Oxygen Saturation 99% 11/03/2024 8:28 AM CDT Inhaled Oxygen Concentration - - Weight 63 kg (139 lb) 11/03/2024 8:28 AM CDT Height 157.5 cm (5' 2 ) 11/03/2024 8:28 AM CDT Body Mass Index 25.42 11/03/2024 8:28 AM CDT Plan of Treatment Not on file Procedures Procedure Name Priority Date/Time Associated Diagnosis Comments NM MPI SPECT (REST AND/OR STRESS) MULTIPLE STUDIES Schedule Routine, Read Routine (OP Routine) 11/16/2024 10:17 AM CDT Chest pain, unspecified type ELECTROCARDIOGRAM REPORT Routine 11/03/2024 Old ID (myocardial infarction) Chest pain, unspecified type THYROID FUNCTION CASCADE Routine 10/27/2024 10:18 AM CDT Acquired hypothyroidism LIPID PANEL Routine 09/06/2024 12:51 PM TAKE UP SUPERVISOR from Last 3 Months Results * NM MPI SPECT (Rest and/or Stress) Multiple Studies (11/16/2024 10:17 AM CDT) Anatomical Region Laterality Modality Body N/A Nuclear Medicine 11/16/2024 9:56 AM CDT Narrative 11/17/2024 8:08 AM CDT [facility] Cardiology [address] [facility] [address], [place] [address] [address] [facility] [address] [address] P:[phone] P:[phone] MPI Imaging Report Patient Name: WILMA RAO A : 1960 Study Date: 11/16/2024 9:56:12 AM Gender: F Tech: [facility] Location: [facility] Provider: SELINA SERRANO Height(Cm): 157.5 BSA: Weight(Kg): 63 BMI: 25.4 Order Provider: SELINA SERRANO PHYSICIAN: Referring Physician: Kacey Lemons NP. HCG Physician: Selina Serrano M.D. Interpreting Physician: Geovanna Tubbs M.D.,F.A.C.C. Stress Supervision: Geovanna Tubbs M.D.,F.A.C.C. PROCEDURES: Exercise SPECT Report: Myocardial perfusion imaging with Tc99m Sestamibi SPECT at rest and stress post exercise using the Dane protocol. INDICATIONS: Hypertension, Family Hx CAD, High Cholesterol, Former Smoker, MEDEL, and R07.9 Chest pain, unspecified. FINDINGS: Procedure: Other. Tc99m Sestamibi injected IV at rest was 8.6 millicuries 25.0 millicuries of Tc99m Sestamibi injected IV at peak stress Exercise stress related symptoms include chest burning /10 . Symptoms were resolved with rest. Baseline heart rate was 71 BPM Peak heart rate was 154 BPM Max projected heart rate was 156 Percent predicted max heart rate achieved was 99 % Exercise Time 7:30 min Baseline blood pressure was 134/78 mmHg Peak blood pressure 152/80 mmHg Termination: Chest burning . Resting ECG: Sinus rhythm, normal ECG. Post ECG: No diagnostic ST changes. Perfusion Findings: Normal perfusion imaging. No definite fixed or reversible defects. A TID of 0.93 was automatically calculated. LV Function: There is hyperdynamic global left ventricular systolic function. Left Ventricular Ejection Fraction is 91 %. CONCLUSIONS: Normal perfusion imaging. No definite fixed or reversible defects. A TID of 0.93 was automatically calculated. Sinus rhythm, normal ECG. No diagnostic ST changes. There is hyperdynamic global left ventricular systolic function. Left Ventricular Ejection Fraction is 91 %. Electronically Signed By: Geovanna Tubbs MD, [facility] 11/17/2024 7:24:30 AM CDT Electronically Signed By: Geovanna Tubbs MD, [facility] 11/17/2024 7:24:30 AM CDT Procedure Note Geovanna Tubbs MD - 11/17/2024 [facility] Cardiology [address] [facility] [address], [place] [address] [address] [facility] [address], [place] [address] P:[phone] P:[phone] MPI Imaging Report Patient Name: WILMA RAO A : 1960 Study Date: 11/16/2024 9:56:12 AM Gender: F Tech: LEODAN SORIA Location: [facility] Provider: SELINA SERRANO Height(Cm): 157.5 BSA: Weight(Kg): 63 BMI: 25.4 Order Provider: SELINA SERRANO PHYSICIAN: Referring Physician: Kacey Lemons NP. HCG Physician: Selina Serrano M.D. Interpreting Physician: Geovanna Tubbs M.D.,F.A.C.C. Stress Supervision: Geovanna Tubbs M.D.,F.A.CAdanC. PROCEDURES: Exercise SPECT Report: Myocardial perfusion imaging with Tc99m Sestamibi SPECT at rest and stresspost exercise using the Dane protocol. INDICATIONS: Hypertension, Family Hx CAD, High Cholesterol, Former Smoker, MEDEL, andR07.9 Chest pain, unspecified. FINDINGS: Procedure: Other. Tc99m Sestamibi injected IV at rest was 8.6 millicuries 25.0 millicuries of Tc99m Sestamibi injected IV at peak stress Exercise stress related symptoms include chest burning 3/10 . Symptoms were resolved with rest. Baseline heart rate was 71 BPM Peak heart rate was 154 BPM Max projected heart rate was 156 Percent predicted max heart rate achieved was 99 % Exercise Time 7:30 min Baseline blood pressure was 134/78 mmHg Peak blood pressure 152/80 mmHg Termination: Chest burning . Resting ECG: Sinus rhythm, normal ECG. Post ECG: No diagnostic ST changes. Perfusion Findings: Normal perfusion imaging. No definite fixed or reversible defects. A TIDof 0.93 was automatically calculated. LV Function: There is hyperdynamic global left ventricular systolic function. LeftVentricular Ejection Fraction is 91 %. CONCLUSIONS: Normal perfusion imaging. No definite fixed or reversible defects. A TIDof 0.93 was automatically calculated. Sinus rhythm, normal ECG. No diagnostic ST changes. There is hyperdynamic global left ventricular systolic function. LeftVentricular Ejection Fraction is 91 %. Electronically Signed By: Geovanna Tubbs MD, [facility] 11/17/2024 7:24:30 AM CDT Electronically Signed By: Geovanna Tubbs MD, [facility] 11/17/2024 7:24:30 AM CDT Selina Serrano MD IMG NM PROCEDURES Final Result * Electrocardiogram Report (11/03/2024) 11/03/2024 Selina Serrano MD ECG ORDERABLES Final Result * Thyroid Function [place] (10/27/2024 10:18 AM CDT) TSH 1.05 0.30 - 4.20 mcIUnit/mL Blood 10/27/2024 10:1 8 AM CDT 10/27/2024 11:06 AM CDT Lucia Mitchell MD LAB BLOOD ORDERABLE S Final Result [facility] [address] Department [place] [address] * Lipid panel (09/06/2024 12:51 PM TAKE UP SUPERVISOR) Blood Kacey Lemons NP LAB BLOOD ORDERABLES Final Res ult from Last 3 Months Insurance [facility] CHOICE PLUS [facility] CHOICE PLUS [id number]ICE PLUS Care Teams Vulcanizer Relationship Specialty Start Date End Date Kacey Lemons NP [address] [place] [address] PCP - General Nurse Practitioner 11/03/24
--- OUTSIDE RECORDS SUMMARY | 2024-11-19 08:58 | XMS_ITS | Clinical Summary ---
Author Organization [facility] Address [address] [place] [address] Care Team Providers Care Personal Injury Legal Assistant Name Role Phone Lucille Rodriguez MD Primary Care Provider [phone] Source Comments [facility],non-owned Affiliates and Associated Physician Practices is amultiple site organization consisting of ambulatory clinics and hospital sitesin [place], [place] and [place]. This disclosure is being madepursuant to the Care Everywhere program and may not contain all information available regarding this patient. Last updated 18.[facility] Allergies Active Allergy Reactions Criticality Noted Date Comments Codeine Urticaria Medium 08/27/2018 Penicillins Renal Injury High 08/27/2018 Medications * Be aware that medications may not be up to date on this document. Alwaysverify current medications with the patient. SPIRONOLACTONE PO Ac tive Cetirizine HCl (ZYRTEC PO) Active Immunizations Immunization Administration Dates Next Due iNFLUENZA VACCINE, RECOM-MEI, QUADR. (FLUBLOCK QUADRIVALENT; 18Y+) (RIV4) 08/27/2018 Social History Tobacco Use Types Packs/Day Years Used Date Smoking Tobacco: Former Cigarettes Q uit: 1992 Smokeless Tobacco: Never Comments No Sex and Gender Information Value Date Recorded Sex Assigned at Not on file Legal Sex Female 7:08 PM COKE DRAWER HAND Gender Identity Not on file Sexual Orientation [...] SCREENING 1960 LIPID TESTING 1960 MAMMOGRAM 1960 HIV SCREENING 1975 HEPATITIS C SCREENING 06/25/1978 DTAP/TDAP/TD VACCINES (1 - Tdap) 1979 PNEUMOCOCCAL VACCINE 50+ (1 of 1 - PCV) 2010 ZOSTER VACCINE (1 of 2) 2010 SCREENING FOR DIABETES 04/07/2019 COVID-19 VACCINE (1 - 2023-2 5 season) 2024 DEPRESSION SCREENING [...] on patient's age to complete this topic Insurance [facility] Care Teams Personal Injury Legal Assistant Relationship Specialty Start Date End Date Lucille Rodriguez MD [address] [facility] [address] [place] [address] PCP - General 03/22/15
--- OUTSIDE RECORDS SUMMARY | 2024-11-19 08:58 | XMS_ITS | Clinical Summary ---
Author Organization [facility] Address [address] [place] [address] Care Team Providers Care People Greeter Name Role Phone He Ramires Primary Care Provider [phone] Allergies Active Allergy Reactions Criticality Noted Date [...] % solution 0.01 %. 6 Active zoledronic wamr-ggfhdkgv-t ater (RECLAST) 5 mg/100 mL Piggyback infuse [...] 1-dose 75+ series) 2035 Insurance Care Teams People Greeter Relationship Specialty Start Date End Date He Ramires DO PCP - General Internal Medicine 04/08/18
--- OUTSIDE RECORDS SUMMARY | 2024-11-19 08:58 | XMS_ITS | Encounter Summary ---
Author Organization [facility] Address [address] [place] [address] Care Team Providers Care Vc++ Developer Name Role Phone Kacey Lemons NP Primary Care Provider [phone] Encounter Details Date Type Department Care Team (Late st Contact Info) Description 11/17/2024 Results Follow-Up [facility] Cardiology [address] [place] [address] Bessy Rodriguez RN Social History Tobacco Use Types Packs/Day Years [...] on file Legal Sex Female 3:45 AM TRAVEL REGISTERED NURSE ICU Gender Identity Not on file Sexual Orientation Not on file documented as of this encounter Miscellaneous Notes * Telephone Encounter - Vanessa Orr - 11/17/2024 11:41 AM CDT Pt called with a question regarding her metoprolol. She is wanting to know if she still needs to betaking it since her test results came back normal. Please advise Thank you Contact: documented in this encounter Plan of Treatment Not on file documented as of this encounter Visit Diagnoses Not on filedocumented in this encounter Care Teams Vc++ Developer Relationship Specialty Start Date End Date Kacey Lemons NP [address] [place] [address] PCP - General Nurse Practitioner 11/03/24 documented as of this encounter
--- OUTSIDE RECORDS SUMMARY | 2024-11-19 08:58 | XMS_ITS | Clinical Summary ---
Author Organization [facility] [address] [place] [phone] Care Team Providers Care Can Tender Name Role Phone Kacey Lemons NP Primary Care Provider [phone] Allergies Active Allergy Reactions Criticality Noted Date [...] mouth daily 90 tablet 3 025 Active hyayiixghbir-Nd-q meredith-minerals tablet Take by mouth Active aspirin [...] year Assessment & Plan (08/29/2022 1:02 PM PLASTIC SHEETS FINISHING SUPERVISOR): Continue current dose of levothyroxine therapy. Check TSH today Further plans based on repeat thyroid labs Follow-up in 1 year Assessment & Plan (08/29/2021 2:34 PM PLASTIC SHEETS FINISHING SUPERVISOR): Continue current dose of levothyroxine therapy. Check TSH today Further plans based on repeat thyroid labs Follow-up in 1 year Assessment & Plan (08/09/2020 1:17 PM PLASTIC SHEETS FINISHING SUPERVISOR): Continue current dose of levothyroxine therapy. [...] 04/04/2020 Assessment & Plan (09/06/2019 10:12 PM PLASTIC SHEETS FINISHING SUPERVISOR): Resolved Off Methimazole since 09/2018 Pt [...] negative Assessment & Plan (09/08/2017 9:52 AM PLASTIC SHEETS FINISHING SUPERVISOR): Repeat TFT today and based on [...] Department Care Team Description 11/17/2024 Results Follow-Up [facility]iology [address] [place] [phone] Bessy Rodriguez RN 11/16/2024 8:15 AM CDT Ancillary Procedure [facility] [address] [place] [phone] Arrived 11/12/[address] [phone] Selina Serrano MD 11/05/[address] [phone] Selina Serrano MD 11/03/2024 8:30 AM CDT Office Visit [facility] [address] [place] [phone] Selina Serrano MD Old ID (myocardial infarction); Chest pain, unspecified type 11/03/2024 Orders Only [facility] [address] [place] [phone] Kacey Lemons NP 10/27/2024 10:20 AM CDT Lab [address] [phone] Acquired hypothyroidism 10/27/2024 10:00 AM CDT Office Visit [facility] [address] [phone] Lucia Fuentes MD Acquired hypothyroidism (Primary Dx); Prediabetes 10/27/2024 Results Follow-Up [facility] [address] [phone] Lucia Fuentes MD from Last 3 Months [...] Sinus surgery in 1997 Rotator cuff syndrome 2010 Torn rotat or cuff; Comments: 07/06/2016 - [...] on file Legal Sex Female 3:45 AM PLASTIC SHEETS FINISHING SUPERVISOR Gender Identity Not on file Sexual [...] 11/03/2024 8:28 AM CDT Plan of Treatment Health Maintenance [...] hypothyroidism LIPID PANEL Routine 09/06/2024 12:51 PM PLASTIC SHEETS FINISHING SUPERVISOR from Last 3 Months Results * NM MPI SPECT (Rest and/or Stress) Multiple Studies (11/16/2024 10:17 AM CDT) Anatomical Region Laterality Modality Body N/A Nuclear Medicine 11/16/2024 9:56 AM CDT Narrative 11/17/2024 8:08 AM CDT [facility]iology [address], [place] [address] [address], [place] [address] P:[phone] P:[phone] MPI Imaging Report Patient Name: WILMA RAO A : 1960 Study Date: 11/16/2024 9:56:12 AM Gender: F Tech: MALOU SORIAMT Location: [facility] Provider: SELINA SERRANO Height(Cm): 157.5 BSA: [...] %. Electronically Signed By: Geovanna Tubbs MD, [facility] 11/17/2024 7:24:30 AM CDT Electronically Signed By: Geovanna Tubbs MD, [facility] 11/17/2024 7:24:30 AM CDT Procedure Note Geovanna Tubbs MD - 11/17/2024 [facility] Cardiology [address] [facility] [address] [id number] [address] [facility] [address], [place] [address] P:[phone] P:[phone] MPI Imaging Report Patient Name: WILMA RAO A : 1960 Study Date: 11/16/2024 9:56:12 AM Gender: F Tech: [facility] Location: [facility] Provider: SELINA SERRANO Height(Cm): 157.5 BSA: [...] Exercise stress related symptoms include chest burning 10 . Symptoms were resolved with rest. Baseline [...] %. Electronically Signed By: Geovanna Tubbs MD, [facility] 11/17/2024 7:24:30 AM CDT Electronically Signed By: Geovanna Tubbs MD, [facility] 11/17/2024 7:24:30 AM CDT Selina Serrano MD [facility] [place] PROCEDURES Final Result * Electrocardiogram Report (11/03/2024) 11/03/2024 us Selina Serrano MD ECG ORDERABLES Final Result * Thyroid Function [place] (10/27/2024 10:18 AM CDT) TSH 1.05 0.30 - 4.20 mcIUnit/mL Blood 10/27/2024 10:1 8 AM CDT 10/27/2024 11:06 AM CDT us Lucia Mitchell MD LAB BLOOD ORDERABLE S Final Result [facility] [id number] [address] Department [place] [address] * Lipid panel (09/06/2024 12:51 PM PLASTIC SHEETS FINISHING SUPERVISOR) Blood us Kacey Lemons NP LAB BLOOD ORDERABLES Final Res ult from Last 3 Months Insurance [facility]PP[facility] Address: [address] [address] [place] [address] [facility]/PPO Address: [address] [address] [place] [id number] [facility] PLUS [facility] H[facility]/PPO Address: [address] [place] [id number] Care Teams Can Tender Relationship Specialty Start Date End Date Kacey Lemons NP [address] [place] [address] PCP - General Nurse Practitioner 11/03/24
--- NOTE | 2024-11-19 12:35 | WPDPFTINT ---
PFT Procedure Performed PFT Procedure Performed Spirometry with Pre/Post Bronchodilator Plethysmography (Lung Vol) Diffusing Cap (DLCO) Flow Vol Loop PFT Interpretation This is a pulmonary function test with pre and post-bronchodilator spirometry, plethysmography and diffusing capacity. The test was performed and results interpreted in accordance with the 2019 and 2005 ATS/ERS Task Force guidelines respectively using the Global Lung Function Initiative-2012 reference equations. Patient demonstrated good effort and cooperation. Reproducibility criteria were met. The quality of the pre bronchodilator spirometry maneuver was Grade B and post bronchodilator spirometry maneuver was Grade A. Findings: Spirometry: The contour the inspiratory and expiratory flow tracing are normal. The pre bronchodilator FVC is 3.04 L, 108% predicted. The pre bronchodilator FEV1 is 2.28 L, 103% predicted. The pre bronchodilator FEV1: FVC ratio 75%. The post bronchodilator FVC is 3.09 L, representing a 2% increase. The post bronchodilator FEV1 is 2.40 L, representing a 5% increase. The post bronchodilator FEV1: FVC ratio 78%. Plethysmography: The total lung capacity is 4.57 L, 97% predicted. functional residual capacity is 1.93 L, 72% predicted. Residual volume is 1.53 L, 78% predicted. Diffusing capacity: The diffusing capacity unadjusted for hemoglobin and carboxyhemoglobin is 17.5, 86% predicted. The diffusing capacity adjusted for alveolar volume is 4.20, 94% predicted. Impression: The spirometry is normal without evidence of an obstructive abnormality. There is no significant improvement after inhaling a single dose of albuterol. The lung volumes are normal. The diffusing capacity is normal. There are no prior studies for comparison
== END 2024-11-19 08:48 | disposition home or self-care (01) ==
PROVIDERS: PCP Nurse Practitioner Family; Visit Provider Nurse Practitioner Family
DX: I08.1 Rheumatic disorders of both mitral and tricuspid valves (principal); I10 Essential (primary) hypertension; E78.5 Hyperlipidemia, unspecified; R73.03 Prediabetes; E03.9 Hypothyroidism, unspecified
CPT/HCPCS: 93306; 94060; 94726; 94729

== ENCOUNTER 2025-03-21 09:05 | Emergency (ER) | payer OTHER, SELFPAY ==
--- NOTE | 2025-03-21 09:12 | ED.SKABFB ---
HPI - Skin/Abscess/Foreign Bdy General Chief complaint: Skin/Abscess/Foreign Body Stated complaint: itchy spots on chest Time Seen by Provider: 03/21/25 09:13 Source: patient Mode of arrival: ambulatory Limitations: no limitations History of Present Illness HPI narrative: Jacquelin is a 64-year-old female patient presenting to the clinic today with complaints of 3 itchy/burning areas to her anterior chest wall x 1 week. Has not applied any creams to the area to help alleviate symptoms. Denies any fevers, chills, body aches. Denies any environmental changes. Area is draining some yellowish discharge Related Data Home Medications ?Medication ?Instructions ?Recorded ?Confirmed ?Last Taken ?Type timolol maleate 0.5 % eye drops 1 drp EACH EYE DAILY 12/09/20 03/03/25 Unknown History levothyroxine 75 mcg capsule 75 mcg PO DAILY 11/03/21 03/03/25 Unknown History cetirizine 10 mg capsule (Zyrtec) 10 mg PO DAILY 11/13/21 03/03/25 Unknown History ergocalciferol (vitamin D2) 1,250 1 mcg PO 2XW 09/06/22 03/03/25 Unknown History mcg (50,000 unit) capsule aspirin 81 mg tablet,delayed 81 mg PO DAILY 03/03/25 03/03/25 Unknown History release (Adult Aspirin Regimen) latanoprost 0.005 % eye drops 1 drp EACH EYE DAILY 03/03/25 03/03/25 Unknown History metoprolol tartrate 25 mg tablet 12.5 mg PO BID 03/03/25 03/03/25 Unknown History Allergies Allergy/AdvReac Type Severity Reaction Status Date / Time codeine Allergy Intermediate Hives Verified 03/21/25 09:16 Penicillins Allergy Intermediate Rash Verified 03/21/25 09:16 Review of Systems Review of Systems: Pertinent positives per HPI. Patient denies any fever, chills, headache, visual changes, dizziness, cough, shortness of breath, chest pain, palpitations, nausea, vomiting, diarrhea, constipation, abdominal pain, or any urinary issues. [facility] Past Medical History Medical History Left ventricular hypertrophy Family history of pulmonary fibrosis Osteopenia Impaired fasting glucose Hypothyroidism Hyperglycemia HTN (hypertension) Disorder of bone density and structure, unspecified Calculus of gallbladder without cholecystitis without obstruction Gastro-esophageal reflux disease without esophagitis (04/21/19) Generalized anxiety disorder History of [place] (myocardial infarction) 1992 Hyperlipidemia Hyperthyroidism Vitamin D deficiency (04/21/19) Surgical History Surgical History History of rotator cuff surgery History of cholecystectomy Family History Family History Mother Family history of congestive heart failure Father Family history of cystic fibrosis Pulmonary fibrosis Other Pulmonary fibrosis Other Diabetes mellitus Family history of arthritis Family history of cardiovascular disease Family history of lung disease Family history of malignant neoplasm Family history of osteoporosis Hypertension Social History Social History Smoking packs per day: 0.25 Smoking cigarettes per day: 5.0 Years smoked: 19 Smoking pack-years: 4.75 Smoking status: Former smoker Tobacco type: cigarettes Second hand tobacco smoke exposure: Yes Smoking end date: 10/24/92 Alcohol intake: current Alcohol use details: Social Substance use: never Substance use type: does not use Lack of Transportation: No Lack of Food: Never True Current Housing: I Have Housing Concerned About Future Housing: No Difficulty Paying Gas/Electric Bills: No Difficulty Paying for Meds: No Currently Unemployed: No Education: Bachelor's Degree Difficulty w/ Childcare or Family Care: No Living arrangements: with family Spiritual care concerns: No Agree to blood products: Yes Comments At the time of my signature, I reviewed and agree with the nursing past medical, surgical, social, and family history. There is no relevant family history pertinent to the patient complaint. Exam Narrative: General: Well-developed, well nourished, in no apparent distress Head: Normocephalic, atraumatic. Cardio: Regular rate and rhythm, s1 and s2 normal, no murmur appreciated. Resp: Clear to auscultation bilaterally, no rhonchi, rales, wheezing or rubs. Integumentary: [place], warm, and dry, 3 red, flat, itchy, burning rash with some yellow discharge to the anterior chest wall Course Course Emergency Course: Portions of this record may have been created with voice recognition software. Level of Care: Express Care Visit Vital Signs Vital signs: Vital Signs Temperature 36.8 C 03/21/25 09:13 Pulse Rate 62 03/21/25 09:13 Respiratory Rate 18 03/21/25 09:13 Blood Pressure 140/81 03/21/25 09:13 Pulse Oximetry 99 03/21/25 09:13 Oxygen Delivery Room Air 03/21/25 09:13 Temperature 36.8 C 03/21/25 09:13 Pulse Rate 62 03/21/25 09:13 Respiratory Rate 18 03/21/25 09:13 Blood Pressure 140/81 03/21/25 09:13 Pulse Oximetry 99 03/21/25 09:13 Oxygen Delivery Room Air 03/21/25 09:13 Vital signs reviewed MDM - Skin/Abscess/Foreign Bdy MDM Narrative Medical decision making narrative: At the time of visit patient is resting comfortably on the exam table. Patient appears to be nontoxic. Complaints of 3 itchy/burning areas to her anterior chest wall x 1 week. Has not applied any creams to the area to help alleviate symptoms. Denies any fevers, chills, body aches. Denies any environmental changes. 3 red, flat, itchy, burning rash with some yellow discharge to the anterior chest wall Plan: I suspect patient likely has a staph infection. Prescription for mupirocin cream was sent to the pharmacy. Recommend follow-up with dermatology or PCP in 5-7 days if symptoms persist as she may need further evaluation such as biopsy or scraping of the area. Supportive measures were discussed with the patient and they voiced understanding discharge instructions and agrees to treatment plan. Return precautions reviewed Differential Diagnosis Differential diagnosis: Likely abscess of skin or subcutaneous tissue, viral exanthem, dermatophytosis, urticaria, herpes zoster, allergic reaction to drug, cellulitis, eczema, insect bites, impetigo and contact dermatitis Discharge Plan Discharge Clinical Impression: Staphylococcal infection of skin Patient Disposition: Home Condition: Stable Instructions: Antibiotic Form, Acute Rash (ED) Additional Instructions: I suspect you likely have a staph infection. Apply mupirocin cream to the affected area twice daily x7 days Keep area covered if draining If symptoms do not improve in 5-7 days recommend follow-up with PCP or Dermatology for further evaluation Patient Language: Belarusian Prescriptions: New mupirocin calcium 2 % cream 1 applic topical BID 7 Days Qty: 30 0RF No Action timolol maleate 0.5 % drops 1 drp EACH EYE DAILY ergocalciferol (vitamin D2) 1,250 mcg (50,000 unit) capsule 1 mcg PO 2XW Patient Comments: every two weeks levothyroxine 75 mcg capsule 75 mcg PO DAILY Patient Comments: endo latanoprost 0.005 % drops 1 drp EACH EYE DAILY metoprolol tartrate 25 mg tablet 12.5 mg PO BID aspirin [Adult Aspirin Regimen] 81 mg tablet,delayed release (DR/EC) 81 mg PO DAILY Zyrtec 10 mg Capsule 10 mg PO DAILY fluticasone propionate 50 mcg/actuation spray,suspension See Rx Instructions .ROUTE .COMPLEX Qty: 48 0RF Dose Instruction: SHAKE LIQUID AND USE 2 SPRAYS IN EACH NOSTRIL DAILY Rx Instructions: SHAKE LIQUID AND USE 2 SPRAYS IN EACH NOSTRIL DAILY spironolacton-hydrochlorothiaz 25-25 mg tablet See Rx Instructions .ROUTE .COMPLEX Qty: 90 3RF Dose Instruction: TAKE 1 TABLET DAILY Rx Instructions: TAKE 1 TABLET DAILY rosuvastatin 20 mg tablet See Rx Instructions .ROUTE .COMPLEX Qty: 90 3RF Dose Instruction: TAKE 1 TABLET DAILY Rx Instructions: TAKE 1 TABLET DAILY Follow-up/Referrals: Kacey Lemons APRN [Primary Care Provider, Internal Medicine] Time of Disposition: 09:19 Quality NIHSS Nursing Documentation ED NIHSS nursing documentation: reviewed/agree
[2025-03-21 09:13] VITALS: BP 140/81; PULSE 62; RESP 18; TEMP 36.8; O2SAT 99
== END 2025-03-21 09:20 | disposition home or self-care (01) ==
PROVIDERS: Emergency Provider Nurse Practitioner Family; PCP Nurse Practitioner Family
DX: L08.9 Local infection of the skin and subcutaneous tissue, unspecified (principal); B95.8 Unspecified staphylococcus as the cause of diseases classified elsewhere; M85.80 Other specified disorders of bone density and structure, unspecified site; E03.9 Hypothyroidism, unspecified; I10 Essential (primary) hypertension; K21.9 Gastro-esophageal reflux disease without esophagitis; I25.2 Old myocardial infarction; E78.5 Hyperlipidemia, unspecified; E05.90 Thyrotoxicosis, unspecified without thyrotoxic crisis or storm; E55.9 Vitamin D deficiency, unspecified; Z79.82 Long term (current) use of aspirin
CPT/HCPCS: 99213; G0463

== ENCOUNTER 2025-03-23 15:31 | Outpatient (CLI) | payer OTHER, SELFPAY ==
--- NOTE | ~2025-03-23 | CT_ITS ---
EXAMINATION: CT brain & sinus wo con DATE: 03/23/2025 16:44 INDICATION: Disturbance of smell and taste TECHNIQUE: Computed tomography (CT) of the brain and sinuses was performed without intravenous contrast. The dose-length product was 983.67 mGy-cm. Automated exposure control and iterative reconstruction technique were employed. COMPARISON: None FINDINGS: Brain parenchymal volume is within normal limits for age. There are scattered mild periventricular and subcortical white matter changes, most likely related to small vessel ischemic disease (microangiopathy). No ventriculomegaly or midline shift. Basilar cisterns are patent. Paranasal sinuses are pneumatized. There is mild mucosal thickening of the left maxillary sinus. Mastoids are pneumatized. No significant nasal septal deviation. Ostiomeatal units are patent. There is a right-sided stew bullosa. There is mild mucosal thickening of the right sphenoid sinus. IMPRESSION: 1. Mild sinus disease. 2: No acute intracranial abnormality. Reviewed, dictated and finalized at location O.
--- OUTSIDE RECORDS SUMMARY | 2025-03-23 15:35 | XMS_ITS | Clinical Summary ---
Author Organization [facility] [employer] Address [address] [place] [address] Care Team Providers Care Rn Production Name Role Phone Lucilel Rodriguez MD Primary Care Provider [phone] Source Comments [facility] [employer],non-owned Affiliates and Associated Physician Practices is amultiple site organization consisting of ambulatory clinics and hospital sitesin [place], [place] and [place]. This disclosure is being madepursuant to the Care Everywhere program and may not contain all information available regarding this patient. 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
--- OUTSIDE RECORDS SUMMARY | 2025-03-23 15:35 | XMS_ITS | Clinical Summary ---
Author Organization [facility] [address] [place] [address] Care Team Providers Care Humidifier Maintenance Worker Name Role Phone Kacey Lemons NP Primary Care Provider [phone] Allergies Active Allergy Reactions Criticality Noted Date Comments Codeine Hives Medium 09/05/2017 Brimonidine-Timolol Other (See comments),Redness Low 11/05/2024 Eye irritation Penicillins Rash Reaction: Rash, Medications ergocalciferol (VITAMIN D) 50,000 unit capsule take 1 capsule by oral route every week 0 0 07/06/20 16 Active timolol (TIMOPTIC) 0.5 % ophthalmic solution instill 1 drop by intraocular route every morning 0 0 07/06/20 16 Active spironolactone-hyd roCHLOROthiazide (ALDACTAZIDE) 25-25 mg per tablet take 1 tablet by oral route every day 0 0 07/06/20 16 Active cetirizine (ZyrTEC) 10 mg tablet take 1 tablet by oral route every day 0 0 07/06/20 16 Active rosuvastatin (CRESTOR) 20 mg tablet 09/26/19 24 Active latanoprost (XALATAN) 0.005 % ophthalmic solution 09/11/19 25 Active levothyroxine (SYNTHROID) 75 mcg tabletIndications: Acquired hypothyroidism Take 1 tablet (75 mcg total) by mouth daily 90 tablet 3 10/28/19 25 Active xeqfciedqpxt-Jd-rc on-minerals tablet Take by mouth Active aspirin 81 mg enteric coated tablet Take 1 tablet (81 mg total) by mouth daily 90 tablet 3 11/04/19 25 026 Active metoprolol tartrate (LOPRESSOR) 25 mg immediate release tablet Take 0.5 tablets (12.5 mg total) by mouth 2 (two) times a day 90 tablet 3 11/13/19 25 026 Active Active Problems Problem Noted Date Diagnosed Date Prediabetes 10/27/2024 Acquired hypothyroidism 04/04/2020 Assessment & Plan (10/30/2023 1:47 PM CDT): Chronic, stable Reviewed patient's recent thyroid lab results TSH at goal Continue current dose of levothyroxine therapy Follow-up in 1 year Assessment & Plan (08/29/2022 1:02 PM PRESSFITTER): Continue current dose of levothyroxine therapy. Check TSH today Further plans based on repeat thyroid labs Follow-up in 1 year Assessment & Plan (08/29/2021 2:34 PM PRESSFITTER): Continue current dose of levothyroxine therapy. Check TSH today Further plans based on repeat thyroid labs Follow-up in 1 year Assessment & Plan (08/09/2020 1:17 PM PRESSFITTER): Continue current dose of levothyroxine therapy. Check [...] 04/04/2020 Assessment & Plan (09/06/2019 10:12 PM PRESSFITTER): Resolved Off Methimazole since 09/2018 Pt TFT [...] negative Assessment & Plan (09/08/2017 9:52 AM PRESSFITTER): Repeat TFT today and based on the [...] tests. Then please contact your doctor immediately Surgical History Surgery Date Site/Laterality Comments TUBAL [...] on file Legal Sex Female 3:45 AM PRESSFITTER Gender Identity Not on file Sexual Orientation [...] 8:28 AM CDT Height 157.5 cm (5' 2) 11/03/2024 8:28 AM CDT Body Mass Index [...] 08/29/2021, 08/08/2020, Additional history exists Influenza Vaccine (#1) 2025 06/21/2019, 2018 DTaP/Tdap/Td Vaccine (2 - Td or Tdap) 01/09/2029 01/09/2019 Pneumococcal vaccine <65 Aged Out No longer eligible based on patient's age to complete this topic Insurance [facility] PL[facility] PL[facility] Care Teams Humidifier Maintenance Worker Relationship Specialty Start Date End Date Kacey Lemons NP [address] [place] [address] PCP - General Nurse Practitioner 11/03/24
--- OUTSIDE RECORDS SUMMARY | 2025-03-23 15:35 | XMS_ITS | Clinical Summary ---
Author Organization [facility] Address [address] [place] [address] Care Team Providers Care Manufacturing Operations Manager Name Role Phone He Ramires Primary Care Provider [phone] Allergies Active Allergy Reactions Criticality Noted Date [...] % solution 0.01 %. 6 Active zoledronic ilqk-gdixipue-e ater (RECLAST) 5 mg/100 mL Piggyback infuse [...] 12:46 PM CDT Height 157.5 cm (5' 2) 04/30/2018 12:46 PM CDT Body Mass Index [...] (1 of 2) 2010 INFLUENZA VACCINE (#1) 2025 RSV VACCINE (60+ or ) (1 - 1-dose 75+ series) 2035 Insurance [employer] PPO [id number] Care Teams Manufacturing Operations Manager Relationship Specialty Start Date End Date He Ramires DO PCP - General Internal Medicine 04/08/18
== END 2025-03-23 15:32 | disposition home or self-care (01) ==
PROVIDERS: PCP Nurse Practitioner Family; Visit Provider Nurse Practitioner Family
DX: J32.9 Chronic sinusitis, unspecified (principal); R43.9 Unspecified disturbances of smell and taste; R51.9 Headache, unspecified
CPT/HCPCS: 70450; 70486

== ENCOUNTER 2025-05-27 00:39 | Day surgery (SDC) | payer OTHER, SELFPAY ==
[2025-05-14 09:11] VITALS: BMI 25.4
[2025-05-27 09:38] VITALS: BP 128/75; PULSE 74; RESP 18; TEMP 36.4; O2SAT 98
[2025-05-27 09:39] VITALS: BMI 25.3
[2025-05-27] MEDS: LACTATED RINGERS 1,000 ML 150 ML IV CONT (09:49)
--- NOTE | 2025-05-27 10:02 | PM.IMHP ---
H&P: HPI History of Present Illness Date/Time: 05/27/25 10:02 Chief Complaint: History of colon polyps Narrative: The patient has a history of colonic polyps, the last colonoscopy was 3 years ago. 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 Review of Systems Review of Systems: All systems reviewed & are unremarkable except as noted in HPI and below PMFSH Past Medical History Medical History Left ventricular hypertrophy Family history of pulmonary fibrosis Osteopenia Impaired fasting glucose Hypothyroidism Hyperglycemia HTN (hypertension) Disorder of bone density and structure, unspecified Calculus of gallbladder without cholecystitis without obstruction Gastro-esophageal reflux disease without esophagitis (04/21/19) Generalized anxiety disorder History of [place] (myocardial infarction) 1992 Hyperlipidemia Hyperthyroidism Vitamin D deficiency (04/21/19) Surgical History Surgical History History of rotator cuff surgery History of cholecystectomy Family History Family History Mother Family history of congestive heart failure Father Family history of cystic fibrosis Pulmonary fibrosis Other Pulmonary fibrosis Other Diabetes mellitus Family history of arthritis Family history of cardiovascular disease Family history of lung disease Family history of malignant neoplasm Family history of osteoporosis Hypertension Social History Social History Smoking packs per day: 0.25 Smoking cigarettes per day: 5.0 Years smoked: 19 Smoking pack-years: 4.75 Smoking status: Former smoker Tobacco type: cigarettes Second hand tobacco smoke exposure: Yes Smoking end date: 10/24/92 Alcohol intake: current Alcohol use details: Social Substance use: never Substance use type: does not use Lack of Transportation: No Lack of Food: Never True Current Housing: I Have Housing Concerned About Future Housing: No Difficulty Paying Gas/Electric Bills: No Difficulty Paying for Meds: No Currently Unemployed: No Education: Bachelor's Degree Difficulty w/ Childcare or Family Care: No Living arrangements: with family Spiritual care concerns: No Agree to blood products: Yes Meds Home Medications and Allergies Home Medications ?Medication ?Instructions ?Recorded ?Confirmed ?Type timolol maleate 0.5 % eye drops 1 drp EACH EYE DAILY 12/09/20 05/27/25 History levothyroxine 75 mcg capsule 75 mcg PO DAILY 11/03/21 05/27/25 History cetirizine 10 mg capsule (Zyrtec) 10 mg PO DAILY 11/13/21 05/27/25 History ergocalciferol (vitamin D2) 1,250 1 mcg PO 2XW 09/06/22 05/27/25 History mcg (50,000 unit) capsule aspirin 81 mg tablet,delayed 81 mg PO DAILY 03/03/25 05/27/25 History release (Adult Aspirin Regimen) latanoprost 0.005 % eye drops 1 drp EACH EYE DAILY 03/03/25 05/27/25 History metoprolol tartrate 25 mg tablet 12.5 mg PO BID 03/03/25 05/27/25 History rosuvastatin 20 mg tablet See Rx Instructions .Route 03/23/25 05/27/25 Rx .COMPLEX #90 tabs spironolactone 25 See Rx Instructions .Route 03/23/25 05/27/25 Rx mg-hydrochlorothiazide 25 mg tablet .COMPLEX #90 tabs fluticasone propionate 50 See Rx Instructions .Route 03/31/25 05/27/25 Rx mcg/actuation nasal .COMPLEX #48 grams spray,suspension Allergies Allergy/AdvReac Type Severity Reaction Status Date / Time codeine Allergy Intermediate Hives Verified 05/27/25 09:37 Penicillins Allergy Intermediate Rash Verified 05/27/25 09:37 Vital Signs Vital Signs - 24 hr 05/27/25 09:38 Temperature 97.5 F L Pulse Rate 74 Respiratory Rate 18 Blood Pressure 128/75 Pulse Oximetry 98 Oxygen Delivery Room Air Exam Const: General: cooperative and healthy appearing Resp: Effort & Inspection: normal respiratory effort and able to speak in complete sentences Auscultation: clear to auscultation bilaterally Cardio: Rate: regular rate Rhythm: regular rhythm GI: Inspection: normal to inspection GI Palp: No No hepatosplenomegaly present Auscultation: normal bowel sounds Rectal Exam: deferred Skin: General skin exam: normal color Psych: Appearance: grossly normal Mental Status: mental status grossly normal Assessment and Plan Assessment and plan (1) History of colonic polyps: Code(s): Z86.0100 - Personal history of colon polyps, unspecified Status: Acute Assessment and Plan: The patient is deemed a good candidate for the procedure. Consent signed. Will proceed.
--- NOTE | 2025-05-27 10:05 | WPDANESEPPF ---
Anes - Initial Pre Proc Eval Procedure: Operation Date: 05/27/25 11:00 Proposed Procedures p Screening Colonoscopy - Stevie Parekh MD Date/Time: 05/27/25 10:05 Surgeon: Stevie Praekh MD Pre Op Diagnosis: Encounter for screening for malignant neoplasm of Patient Data Age: 64 Gender: F Height: 1.57 m Weight: 62.8 kg Last Vital Signs Temp 36.4 C L 05/27/25 09:38 Pulse 74 05/27/25 09:38 Resp 18 05/27/25 09:38 BP 128/75 05/27/25 09:38 Pulse Ox 98 05/27/25 09:38 O2 Del Method Room Air 05/27/25 09:38 Allergies Allergy/AdvReac Type Severity Reaction Status Date / Time codeine Allergy Intermediate Hives Verified 05/27/25 09:37 Penicillins Allergy Intermediate Rash Verified 05/27/25 09:37 Home Medications ?Medication ?Instructions ?Recorded ?Confirmed ?Type timolol maleate 0.5 % eye drops 1 drp EACH EYE DAILY 12/09/20 05/27/25 History levothyroxine 75 mcg capsule 75 mcg PO DAILY 11/03/21 05/27/25 History cetirizine 10 mg capsule (Zyrtec) 10 mg PO DAILY 11/13/21 05/27/25 History ergocalciferol (vitamin D2) 1,250 1 mcg PO 2XW 09/06/22 05/27/25 History mcg (50,000 unit) capsule aspirin 81 mg tablet,delayed 81 mg PO DAILY 03/03/25 05/27/25 History release (Adult Aspirin Regimen) latanoprost 0.005 % eye drops 1 drp EACH EYE DAILY 03/03/25 05/27/25 History metoprolol tartrate 25 mg tablet 12.5 mg PO BID 03/03/25 05/27/25 History rosuvastatin 20 mg tablet See Rx Instructions .Route 03/23/25 05/27/25 Rx .COMPLEX #90 tabs spironolactone 25 See Rx Instructions .Route 03/23/25 05/27/25 Rx mg-hydrochlorothiazide 25 mg tablet .COMPLEX #90 tabs fluticasone propionate 50 See Rx Instructions .Route 03/31/25 05/27/25 Rx mcg/actuation nasal .COMPLEX #48 grams spray,suspension Patient hx anesthesia problems: none Family hx anesthesia problems: none Results Review: All pre-operative results and documents have been reviewed as part of the pre-operative evaluation. [facility] Past Medical History Medical History Left ventricular hypertrophy Family history of pulmonary fibrosis Osteopenia Impaired fasting glucose Hypothyroidism Hyperglycemia HTN (hypertension) Disorder of bone density and structure, unspecified Calculus of gallbladder without cholecystitis without obstruction Gastro-esophageal reflux disease without esophagitis (04/21/19) Generalized anxiety disorder History of [place] (myocardial infarction) 1992 Hyperlipidemia Hyperthyroidism Vitamin D deficiency (04/21/19) Surgical History Surgical History History of rotator cuff surgery History of cholecystectomy Family History Family History Mother Family history of congestive heart failure Father Family history of cystic fibrosis Pulmonary fibrosis Other Pulmonary fibrosis Other Diabetes mellitus Family history of arthritis Family history of cardiovascular disease Family history of lung disease Family history of malignant neoplasm Family history of osteoporosis Hypertension Social History Social History Smoking packs per day: 0.25 Smoking cigarettes per day: 5.0 Years smoked: 19 Smoking pack-years: 4.75 Smoking status: Former smoker Tobacco type: cigarettes Second hand tobacco smoke exposure: Yes Smoking end date: 10/24/92 Alcohol intake: current Alcohol use details: Social Substance use: never Substance use type: does not use Lack of Transportation: No Lack of Food: Never True Current Housing: I Have Housing Concerned About Future Housing: No Difficulty Paying Gas/Electric Bills: No Difficulty Paying for Meds: No Currently Unemployed: No Education: Bachelor's Degree Difficulty w/ Childcare or Family Care: No Living arrangements: with family Spiritual care concerns: No Agree to blood products: Yes Anes - Eval Final PreProcedure Day of Procedure 05/27/25 10:05 Patient weight: normal Heart: regular rate and rhythm Lungs: clear to auscultation Airway: Mallampati scale class II Neurological: alert and oriented Last oral intake: >/= 8 hours ASA classification: II Emergent: no Anesthetic plan: proceed Anesthesia type and monitoring: general GIVS and standard monitoring Results Review: All pre-operative results and documents have been reviewed as part of the pre-operative evaluation. Informed Consent: The patient's anesthetic plan and its attendant risks and benefits were discussed with the patient/family/POA. Questions were solicited and answers provided to the satisfaction of the patient/family/POA.
[2025-05-27] MEDS: SIMETHICONE ORAL SUSPENSION 20 MG/0.3 ML 30 ML BOTTLE 0.6 ML IRRIGATION (10:21)
--- NOTE | 2025-05-27 10:28 | S_PTH ---
PATIENT: Wilma Scott LOC: [facility] U#:[id number] AGE/SX: 64/F ROOM: RE05/27/[address]: Stevie Parekh MD : 1960 BED: DIS: 05/27/2025 SPEC #: [id number] RECD: 05/27/25 11:33 STATUS: RUBY REQ #: [id number] [place]: 05/27/25 10:[address]: Stevie Parekh DEPT: [facility] Surgical RECD BY: Ene Dumont ENTERED: 05/27/25 11:34 SP TYPE: Surgical OTHR DR: Kacey Lemons APRN Tissues: A - Colon Polypectomy Procedures: Hematoxylin and Eosin Stain Gross and Microscopic Level 4
[2025-05-27 10:30] VITALS: BP 95/61; PULSE 73; RESP 15; O2SAT 98
[2025-05-27 10:40] VITALS: BP 89/57; PULSE 76; RESP 19; O2SAT 100
[2025-05-27 10:50] VITALS: BP 115/71; PULSE 65; RESP 15; O2SAT 100
--- OUTSIDE RECORDS SUMMARY | 2025-05-27 16:00 | XMS_ITS | Clinical Summary ---
Author Organization [facility] Physician Office Building [address] [place] [address] Care Team Providers Care Equine Internship Name Role Phone Kacey Lemons NP Primary Care Provider [phone] Allergies Active Allergy Reactions Criticality Noted Date Comments Codeine Hives High 09/05/2017 Brimonidine-Timolol Other (See comments),Redness Low 11/05/2024 Eye irritation Penicillins Rash High 03/21/2025 Reaction: Rash, Medications ergocalciferol (VITAMIN D) 50,000 [...] daily 90 tablet 3 10/28/19 25 Active sarhfsowdkip-Rs-nu on-minerals tablet Take by mouth Active aspirin 81 mg enteric coated tablet Take 1 tablet (81 mg total) by mouth daily 90 tablet 3 11/04/19 25 026 Active metoprolol tartrate (LOPRESSOR) 25 mg immediate release tablet Take 0.5 tablets (12.5 mg total) by mouth 2 (two) times a day 90 tablet 3 11/13/19 25 026 Active fluticasone propionate (FLONASE) 50 mcg/actuation nasal spray Administer into each nostril daily Active Active Problems Problem Noted Date Diagnosed Date Hyperlipidemia 05/04/2025 Prediabetes 10/27/2024 Acquired hypothyroidism 04/04/2020 Assessment & Plan (10/30/2023 1:47 PM CDT): Chronic, stable Reviewed patient's recent thyroid lab results TSH at goal Continue current dose of levothyroxine therapy Follow-up in 1 year Assessment & Plan (08/29/2022 1:02 PM DOCKING PILOT): Continue current dose of levothyroxine therapy. Check TSH today Further plans based on repeat thyroid labs Follow-up in 1 year Assessment & Plan (08/29/2021 2:34 PM DOCKING PILOT): Continue current dose of levothyroxine therapy. Check TSH today Further plans based on repeat thyroid labs Follow-up in 1 year Assessment & Plan (08/09/2020 1:17 PM DOCKING PILOT): Continue current dose of levothyroxine therapy. Check [...] 04/04/2020 Assessment & Plan (09/06/2019 10:12 PM DOCKING PILOT): Resolved Off Methimazole since 09/2018 Pt TFT [...] negative Assessment & Plan (09/08/2017 9:52 AM DOCKING PILOT): Repeat TFT today and based on the [...] Encounters Date Type Department Care Team Description 05/04/2025 9:15 AM CDT Office Visit [facility] Medical Group Cardiology [address] [place] [address] Chuck Serrano MD Hyperlipidemia, unspecified hyperlipidemia type (Primary Dx) from Last 3 Months Surgical History Surgery [...] on file Legal Sex Female 3:45 AM DOCKING PILOT Gender Identity Not on file Sexual Orientation Not on file Last Filed Vital Signs Vital Sign Reading Time Taken Comments Blood Pressure 130/82 05/04/2025 9:17 AM CDT Pulse 72 05/04/2025 9:17 AM CDT Temperature 36.6 C (97.9 F) 01/15/2024 10:57 AM CDT Respiratory Rate 16 05/04/2025 9:17 AM CDT Oxygen Saturation 99% 05/04/2025 9:17 AM CDT Inhaled Oxygen Concentration - - Weight 63.5 kg (140 lb) 05/04/2025 9:17 AM CDT Height 157.5 cm (5' 2) 05/04/2025 9:17 AM CDT Body Mass Index 25.61 05/04/2025 9:17 AM CDT Plan of Treatment Health Maintenance Due Date Last Done Comments Breast Cancer Screening-Mammogram 1960 Cervical Cancer Screening 1960 Colon Cancer Screening-Colonoscopy 1960 Hepatitis C Screening 1960 Hepatitis B Screening 1978 Regular Well Visit/Exam 18-64 1978 Zoster Vaccine (1 of 2) 2010 Depression Screening 10/23/2024 10/24/2023, 08/29/2021, 08/08/2020, Additional history exists Influenza Vaccine (#1) 2025 , 06/21/2019, 08/27/2018 DTaP/Tdap/Td Vaccine (2 - Td or Tdap) 01/09/2029 01/09/2019 Pneumococcal vaccine <65 Aged Out No longer eligible based on patient's age to complete this topic Insurance [facility] CHOICE PLUS Care Teams Equine Internship Relationship Specialty Start Date End Date WinterKacey NP [address] [place] [id number] PCP - General Nurse Practitioner 11/03/24
--- OUTSIDE RECORDS SUMMARY | 2025-05-27 16:00 | XMS_ITS | Clinical Summary ---
Author Organization [facility] Address [address] [place] [address] Care Team Providers Care Clinical Evaluator Name Role Phone Lucille Rodriguez MD Primary Care Provider [phone] Source Comments [facility],non-owned Affiliates and Associated Physician Practices is amultiple site organization consisting of ambulatory clinics and hospital sitesin [place], [place], [place] and [place]. This disclosure is being madepursuant to the Care Everywhere program and may not contain all information available regarding this patient. 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
--- OUTSIDE RECORDS SUMMARY | 2025-05-27 16:00 | XMS_ITS | Clinical Summary ---
Author Organization [facility] Address [address] [place] [address] Care Team Providers Care Tobacco Stemmer Machine Name Role Phone He Ramires Primary Care Provider [phone] Allergies Active Allergy Reactions Criticality Noted Date [...] % solution 0.01 %. 6 Active zoledronic xabo-qqyygbop-a ater (RECLAST) 5 mg/100 mL Piggyback infuse [...] 1-dose 75+ series) 2035 Insurance [employer] PPO [id number] Care Teams Tobacco Stemmer Machine Relationship Specialty Start Date End Date He Ramires DO PCP - General Internal Medicine 04/08/18
== END 2025-05-27 11:00 | disposition home or self-care (01) ==
PROVIDERS: PCP Nurse Practitioner Family; Referring Provider Internal Medicine Gastroenterology; Visit Provider Internal Medicine Gastroenterology
PROC: 0DJD8ZZ Inspection of Lower Intestinal Tract, Via Natural or Artificial Opening Endoscopic (ICD-10-PCS; CPT 45378; principal; 2025-05-27 11:00)
DX: Z12.11 Encounter for screening for malignant neoplasm of colon (principal); D12.5 Benign neoplasm of sigmoid colon; K64.8 Other hemorrhoids; E78.5 Hyperlipidemia, unspecified; I10 Essential (primary) hypertension; K21.9 Gastro-esophageal reflux disease without esophagitis; E05.90 Thyrotoxicosis, unspecified without thyrotoxic crisis or storm; E55.9 Vitamin D deficiency, unspecified; E03.9 Hypothyroidism, unspecified; R73.9 Hyperglycemia, unspecified; F41.9 Anxiety disorder, unspecified; I25.2 Old myocardial infarction; M85.88 Other specified disorders of bone density and structure, other site; Z79.82 Long term (current) use of aspirin; Z98.890 Other specified postprocedural states; Z90.49 Acquired absence of other specified parts of digestive tract; Z87.891 Personal history of nicotine dependence; Z80.9 Family history of malignant neoplasm, unspecified; Z82.49 Family history of ischemic heart disease and other diseases of the circulatory system
CPT/HCPCS: 45385; 88305; J2704; J7120

== ENCOUNTER 2025-07-12 12:30 | Outpatient (CLI) | payer OTHER, SELFPAY ==
[2025-07-12 13:17] LABS: Influenza A QL RT-PCR Positive (Negative); Influenza B QL RT-PCR Negative (Negative); RSV RNA, RT-PCR Negative (Negative); SARS-CoV-2 RNA PCR Negative (Negative)
--- OUTSIDE RECORDS SUMMARY | 2025-07-12 14:00 | XMS_ITS | Clinical Summary ---
Author Organization [facility] Physician Office Building [address] [place] [id number] Care Team Providers Care Clerk Entry Level Name Role Phone Kacey Lemons NP Primary Care Provider [phone] Allergies Active Allergy Reactions Criticality Noted Date [...] daily 90 tablet 3 10/28/19 25 Active icqmsdxiyrwx-Xv-cz on-minerals tablet Take by mouth Active aspirin [...] year Assessment & Plan (08/29/2022 1:02 PM SUPERVISOR MOLDING): Continue current dose of levothyroxine therapy. Check TSH today Further plans based on repeat thyroid labs Follow-up in 1 year Assessment & Plan (08/29/2021 2:34 PM SUPERVISOR MOLDING): Continue current dose of levothyroxine therapy. Check TSH today Further plans based on repeat thyroid labs Follow-up in 1 year Assessment & Plan (08/09/2020 1:17 PM SUPERVISOR MOLDING): Continue current dose of levothyroxine therapy. Check [...] 04/04/2020 Assessment & Plan (09/06/2019 10:12 PM SUPERVISOR MOLDING): Resolved Off Methimazole since 09/2018 Pt TFT [...] negative Assessment & Plan (09/08/2017 9:52 AM SUPERVISOR MOLDING): Repeat TFT today and based on the [...] Description 05/04/2025 9:15 AM CDT Office Visit [facility] Medical Group Cardiology [address] [place] [address] Chuck Serrano MD Hyperlipidemia, unspecified hyperlipidemia type [...] on file Legal Sex Female 3:45 AM SUPERVISOR MOLDING Gender Identity Not on file Sexual Orientation [...] patient's age to complete this topic Insurance [facility] CHO[facility] PLUS [facility] H[facility]/PPO Address: [address] [address] [place] [address] [facility] Address: [address] [address] [place] [address] [facility] H[facility]/PP[facility] Address: [address] [address] [place] [address] Care Teams Clerk Entry Level Relationship Specialty Start Date End Date WinterKacey NP [address] [place] [phone] PCP - General Nurse Practitioner 11/03/24
--- OUTSIDE RECORDS SUMMARY | 2025-07-12 14:00 | XMS_ITS | Clinical Summary ---
Author Organization [facility] Address [address] [place] [address] Care Team Providers Care Structural Fitter Name Role Phone Lucille Rodriguez MD Primary Care Provider [phone] Source Comments [facility],non-owned Affiliates and Associated Physician Practices is amultiple site organization consisting of ambulatory clinics and hospital sitesin [place], [place], [place] and [place]. This disclosure is being madepursuant to the Care Everywhere program and may not contain all information available regarding this patient. 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 Gender Identity Not on file Sexual Orientation [...] Health Maintenance Due Date Last Done Comments BONE DENSITY TESTING 1960 COLOGUARD (AGES 45-75) - COL ON CA SCREENING 1960 COLON MONITORING 1960 COLONOSCOPY - COLON CA SCREENING 1960 CT COLONOGRAPHY - COLON CA SCREENING 1960 Colorectal Cancer Screening 1960 FIT - COLON CA SCREENING 1960 FLEX SIG - COLON CA SCREENING 1960 LIPID TESTING 1960 MAMMOGRAM 1960 HIV SCREENING 1975 HEPATITIS C SCREENING 06/25/1978 DTAP/TDAP/TD VACCINES (1 - Tdap) 1979 PAP SMEAR 1981 PNEUMOCOCCAL VACCINE 50+ (1 of 1 - PCV) 2010 ZOSTER VACCINE (1 of 2) 2010 SCREENING FOR DIABETES 04/07/2019 DEPRESSION SCREENING 07/22/2024 COVID-19 VACCINE (1 - 2024-2 6 season) 2025 INFLUENZA VACCINE (#1) 2025 08/27/2018 [...] patient's age to complete this topic Insurance [facility] SELF PAY NO INSURANCE Member Subscriber Plan / Payer (Ef fective for All Dates) Name:Wilma Rao Member ID:Not on file Relation to Subscriber:Not on file Name:WILMA RAO Subscriber ID:Not on file (Home) Address: [address] [place] [address] Payer ID:Not on file Group ID:Not on file Type:Self Pay Address: [place], [place] Care Teams Structural Fitter Relationship Specialty Start Date End Date Lucille Rodriguez MD [address] [place] [id number] PCP - General 03/22/15
--- OUTSIDE RECORDS SUMMARY | 2025-07-12 14:00 | XMS_ITS | Clinical Summary ---
Author Organization [facility] Address [address] [place] [address] Care Team Providers Care Watchguard Name Role Phone Ike, He L Primary Care Provider [phone] Allergies Active Allergy Reactions Criticality Noted Date [...] % solution 0.01 %. 6 Active zoledronic ybys-ftosvvnz-h ater (RECLAST) 5 mg/100 mL Piggyback infuse by intravenous route once a year 12/16/201 6 Active Active Problems Problem Noted Date [...] Comments DTAP/TDAP/TD VACCINES (1 - Tdap) 1979 BREAST CANCER SCREENING 2000 COLORECTAL SCREENING 2005 Colorectal Cancer Screening 2005 FIT-DNA Q 3 years 2005 FIT/FOBT Q 1 year 2005 Flex Sig/CT Colonography Q 5 years 2005 PNEUMOCOCCAL VACCINE 50+ YEARS (1 of 1 - PCV) 06/29/20 10 ZOSTER VACCINE (1 of 2) 2010 INFLUENZA VACCINE (#1) 2025 OSTEOPOROSIS SCREENING 2025 RSV VACCINE (60+ or ) (1 - 1-dose 75+ series) 2035 Insurance [employer] PPO [id number] Care Teams Watchguard Relationship Specialty Start Date End Date He Ramires DO PCP - General Internal Medicine 04/08/18
== END 2025-07-12 12:31 | disposition home or self-care (01) ==
PROVIDERS: PCP Nurse Practitioner Family; Visit Provider Nurse Practitioner Family
DX: R05.9 Cough, unspecified (principal); R09.82 Postnasal drip; H92.09 Otalgia, unspecified ear; R68.83 Chills (without fever); Z20.822 Contact with and (suspected) exposure to COVID-19
CPT/HCPCS: 87637